=== PATIENT | female | born 1960 | race Two or more races ===

== ENCOUNTER 2020-03-31 14:20 | Inpatient (IN) | payer OTHER, MEDICAID ==
[~2020-03-31] VITALS: Ht 149.9 cm; Wt 82.7 kg
[2020-03-31 16:11] LABS: Albumin 3.6 g/dL (3.4-5.0); Calcium 9.9 mg/dL (8.5-10.1); Potassium 3.4 mmol/L (3.5-5.1)
[2020-03-31 16:14] LABS: BUN/Creatinine Ratio 38.8; Bilirubin, Total 0.7 mg/dL (0.2-1.0)
[2020-03-31 16:15] LABS: Basophils # (auto) 0 10 ^3/uL (0-0.2); Basophils % (auto) 0.3 % (0.0-2.0); Eosinophils # (auto) 0 10 ^3/uL (0-0.8); Eosinophils % (auto) 0.1 % (0.0-7.0); Hemoglobin 16.2 g/dL (12.2-16.2); Lymphocytes # (auto) 1.5 10 ^3/uL (0.4-5.4); Lymphocytes % (auto) 12.5 % (10.0-50.0); Mean Corpuscular Hemoglobin 30.2 pg (28.0-32.0); Mean Corpuscular Hgb Conc. 32.5 g/dL (32.0-36.0); Mean Corpuscular Volume 92.9 fL (80.0-100.0); Monocytes # (auto) 1.1 10 ^3/uL (0-1.3); Monocytes % (auto) 8.9 % (0.0-12.0); Neutrophils # (auto) 9.3 10 ^3/uL (1.6-8.6); Neutrophils % (auto) 78.2 % (37.0-80.0); Platelet Count (auto) 271 10^3/uL (140-450); Red Blood Cells 5.38 10^6/uL (4.0-5.20); Red Cell Distribution Width 13.6 % (11.8-14.3); White Blood Cell 11.9 10^3/uL (4.4-10.8)
[2020-03-31] MEDS ORDERED: NITROGLYCERIN 0.4 MG SL TAB SL PRN ×2 (18:15→19:45)
[2020-03-31] MEDS ORDERED: LACTATED RINGER'S 1,000 ML IV ONE (19:30)
[2020-03-31] MEDS ORDERED: POTASSIUM CHL 20MEQ/100ML 100 ML IV ONE (19:30)
[2020-03-31] MEDS ORDERED: guaiFENesin 200 MG/10 ML UD PO ONE (19:45)
[2020-03-31] MEDS ORDERED: ONDANSETRON HCL 4 MG/2 ML VIAL IV PRN (19:45)
[2020-03-31] MEDS ORDERED: MORPHINE SULF INJ 2 MG/ML SYRINGE 1ML IV PRN ×2 (19:45)
[2020-03-31] MEDS ORDERED: BACLOFEN 10 MG TAB PO ONE (19:45)
[2020-03-31] MEDS ORDERED: cefTRIAXone 1GM/50ML D5W 50 ML IV ONE (19:45)
[2020-03-31] MEDS ORDERED: PANTOPRAZOLE 40 MG/10 ML VIAL INJ IV ONE (19:45)
[2020-03-31] MEDS ORDERED: CLINDAMYCIN 300MG IV 50 ML IV ONE (19:45)
[2020-03-31] MEDS ORDERED: guaiFENesin 200 MG/10 ML UD PO PRN (20:00)
[2020-03-31] MEDS: SODIUM CHLORIDE 0.9% 1,000 ML IV SCH (21:31)
[2020-03-31] MEDS: MEMANTINE HCL 5 MG TAB PO SCH (22:00)
[2020-03-31 22:09] VITALS: BP 117/75
--- NOTE | 2020-03-31 22:09 | NUR ---
TELE ADMIT Patient arrived to unit via wheelchair and was transferred safely into bed. Patient is A&O X's 4 with no s/s of distress and reports no pain. Patient is receiving 3L O2 via N.C. Elevated patient's HOB and have aspiration precautions in place. Patient was oriented to unit (call light/tv/lights/ policies and procedures.) Educated patient on POC and to use call light when in need of any assistance. Patient verbalized understanding. Bed is in lowest/locked position with side rails up X's 2 and call light is within reach of patient. Will continue care.
[2020-03-31 22:20] VITALS: BP 117/75
[2020-03-31] MEDS: CLINDAMYCIN 300MG IV 50 ML IV SCH (22:41)
[2020-04-01] MEDS ORDERED: guaiFENesin 200 MG/10 ML UD PO PRN
[2020-04-01] MEDS ORDERED: BACL10TA PO (02:14)
[2020-04-01 05:00] VITALS: BP 122/74
[2020-04-01] MEDS: SODIUM CHLORIDE 0.9% 1,000 ML IV SCH (05:30)
[2020-04-01] MEDS: BACLOFEN 10 MG TAB PO SCH ×3 (05:34→21:51)
[2020-04-01] MEDS: CLINDAMYCIN 300MG IV 50 ML IV SCH (05:34)
[2020-04-01 07:08] LABS: Cholesterol 190 mg/dL (< 200); HDL Cholesterol 47 mg/dL (40-59); LDL Cholesterol 125 mg/dL (< 100); Triglycerides 124 mg/dL (< 150)
[2020-04-01] MEDS: Ensure Enlive Strawberry 8oz Bottle PO SCH ×3 (08:00→19:01)
--- NOTE | 2020-04-01 08:30 | NUR ---
Opening Shift Note Assumed care of patient, awake and alert. No S/S of distress/SOB or pain. Instructed on POC and to call for assist PRN, will continue to monitor for changes Q1hr and PRN. Patient for Q2H turning.
[2020-04-01 08:41] VITALS: BP 124/71
[2020-04-01] MEDS: PANTOPRAZOLE 40 MG/10 ML VIAL INJ IV SCH (09:28)
[2020-04-01] MEDS: MEMANTINE HCL 5 MG TAB PO SCH ×2 (10:00→21:51)
[2020-04-01] MEDS ORDERED: POTASSIUM CHL 20 Meq TABLET PO SCH (10:00)
[2020-04-01] MEDS ORDERED: POTASSIUM EFFERVESENT TAB 25 MEQ PO SCH (10:00)
--- NOTE | 2020-04-01 11:00 | NUR ---
WOUND CARE NOTE: PATIENT NOTED TO HAVE LOW TRISH 11, ADDED PATIENT TO SKIN INTEGRITY MONITORING. PATIENT ADMITTED TO [facility] WITH DIAGNOSIS OF ACUTE ASPIRATION PNA. PATIENT IS THIN, WEIGHING ONLY 49.1 KG. SHE HAS HISTORY WITH ALS. PATIENT IS MAX ASSIST FOR ALL OF HER ADL'S, INCLUDING REPOSITIONING. PATIENT IS WOUND FREE AT THIS TIME. ORDERED SPECIALTY AIR MATTRESS. PATIENT TO BE PLACED, PENDING DELIVERY BY [facility]. PATIENT WOULD BENEFIT FROM: FREQUENT TURN SCHEDULE, Q 2 HOURS, PRN CONDITION PERMITS, WITH PRESSURE REDISTRIBUTION USING PILLOWS/WEDGES, BID/PRN APPLICATION WITH MOISTURE BARRIER CREAM, OPTIFOAM GENTLE SACRAL DRESSSING PREVENTATIVE, SPECIALTY AIR MATTRESS, SKIN/WOUND CARE PLAN, DIETARY CONSULT, CONTINUED MONITORING BY WOUND CARE TEAM.
[2020-04-01 13:00] VITALS: BP 102/73
--- NOTE | 2020-04-01 14:28 | NUR ---
Nutrition Assessment/consult Notes please see attached link for complete assessment Est [employer] needs BW 49 [id number] kcals (25-30 kcal/kgBW), Est Protein needs: 49-59 gms/day (1.0-1.2 gm/kgBW). Will continue to monitor and reassess prn. Addendum: 04/01/20 at [address] Amended: Links added.
--- NOTE | 2020-04-01 15:41 | NUR ---
SWALLOW EVALUATED. PATIENT HAS NATURAL TEETH UPPER AND LOWER. PATIENT ACCEPTS THAT SHE HAS DYSPHAGIA DUE TO ALS. ABLE TO TOLERATE PUREE DIET TEXTURE WITH THIN LIQUIDS WITH NO OVERT SIGNS OR SYMPTOMS OF ASPIRATION. EDUCATED PATIENT IN SAFE SWALLOW INCLUDING SMALL BITES AND SIPS, SLOW RATE AND CHIN TUCK. NURSING NOTIFIED.
--- NOTE | 2020-04-01 16:00 | NUR ---
Assessment Patient is a 59-year-old female. Assessment was completed with patient sister Krissy ). Per Krissy prior to admission patient lived with her boyfriend and functioned with assistance. Per Krissy, Rex is to not make any medical decision regarding patient. Per Krissy she would like to be notified for any discharge plan. Per Krissy patient has a walker and wheelchair for home use. Advised Krissy there is a social service consult for SNF Placement. Per Krissy she does not want her sister to be placed at a [facility] nursing facility and would like her to return to her prior living arrangements post discharge and family will transport patient home. Informed Krissy bedside nurse will be informed. Informed Krissy she has the right to participate in all discharge planning. Krissy verbalized understanding and agreed to discharge plan. Informed STAS Gallegos. Addendum: 04/03/20 at 0842 by RUTHIE VIRK Amended: Links added.
[2020-04-01] MEDS: D5W/SOD CHL 0.45%/KCL 20MEQ 1,000 ML IV SCH (16:48)
[2020-04-01 16:54] VITALS: BP 118/59
--- NOTE | 2020-04-01 19:45 | NUR ---
Opening Shift Note Assumed care of patient, awake and alert. No S/S of distress/SOB or pain noted. Instructed on POC and to call for assist PRN. Bed is in lowest locked position with bed rails up x2 and call light is within reach.
--- NOTE | 2020-04-01 19:59 | NUR ---
MD Santos at the bedside.
--- NOTE | 2020-04-01 20:15 | NUR ---
RT NOTE BEDSIDE TONY ATTEMPTED WITH PT PER DR JOHNSON REQUEST/ORDER. PT IS VERY WEAK. PT IS UNABLE TO GET A GOOD SEAL AROUND MOUTH PIECE AND THEREFORE TONY IS UNABLE TO DETECT A BREATH. ABG DRAWN PER DR JOHNSON WELL. PT WAS ON 1L NASAL CANNULA. ABG RESULTS AND TONY RESULTS REPORTED TO DR JOHNSON IN THE ICU WHEN HE WAS DONE WITH PROCEDURE. CONCERN ABOUT PT BEING TOO WEAK TO REMOVE A BIPAP WAS DISCUSSED AND DR JOHNSON STATES THAT PT DOES NEED IT ACCORDING TO ABG RESULTS BUT AGREES WITH CONCERNS, SAID TO SPEAK TO DR MENDOSA ABOUT MAKING THE PT A ONE TO ONE AND CLOSER TO THE NURSING STATION. RT CALLED PBX AND HAS REQUESTED DR MENDOSA BE PAGED
[2020-04-01] MEDS: cefTRIAXone 1GM/50ML D5W 50 ML IV SCH (21:07)
--- NOTE | 2020-04-01 21:14 | NUR ---
RT NOTE SECOND CALL TO PBX TO HAVE DR MENDOSA PAGED FOR ORDER CLARIFICATION
--- NOTE | 2020-04-01 22:32 | NUR ---
MD SANTOS CALLED: MD Santos called and notified that to keep patient NPO after midnight and to place surgical consult with [facility] for Trache and PEG tube placement. To place and carry out orders.
[2020-04-01 22:37] VITALS: BP 109/60
--- NOTE | 2020-04-01 22:50 | NUR ---
RT NOTE PLACED PT ON BIPAP B11 WITH SMALL FACE MASK. BIPAP IS PLUGGED TO RED OUTLET. ALARMS ARE ON AND AUDIBLE TO SITTER AT BEDSIDE. PT PLACED ON BEDSIDE POX PER PROTOCOL. BS ARE CTA. PT APPEARS TO TOLERATE FAIRLY. CONT ORDERED. POX 98% Addendum: 04/01/20 at 2351 by Alka Duarte RT Amended: Links added.
--- NOTE | 2020-04-02 00:30 | NUR ---
RT NOTE ROUTINE BIPAP CHECK DONE. PT ON BIPAP B11 WITH SMALL FACE MASK. BIPAP IS PLUGGED TO RED OUTLET. ALARMS ARE ON AND AUDIBLE TO SITTER AT BEDSIDE. PT PLACED ON BEDSIDE POX PER PROTOCOL. BS ARE CTA. PT APPEARS TO BE SLEEPING AND TOLERATES FAIRLY WELL. CONT ORDERED. POX 98% Addendum: 04/02/20 at 0039 by Alka Duarte RT Amended: Links added.
[2020-04-02 00:54] VITALS: BP 109/60
--- NOTE | 2020-04-02 01:25 | NUR ---
Patient refusing Bipap: Patient wishes to take Bipap off stating "I cant take this anymore. I need it off." Educated patient about the benefits of keeping Bipap on but patient wishes to have it off. Paged respiratory at this time to remove Bipap.
--- NOTE | 2020-04-02 01:35 | NUR ---
Bipap: RT at the bedside. Attempted to remove Bipap per patients request but patient stated she couldn't breath after its removal. Patient placed back on the Bipap to assist with breathing. Instructed that she must keep Bipap on.
--- NOTE | 2020-04-02 01:38 | NUR ---
RT NOTE PT WAS SEEN BY RT FOR REMOVAL OF BIPAP PER PT REQUEST. PT DOES NOT TOLERATE BEING OFF BIPAP FOR MORE THAN 2 MINUTES. PT STARTED GASPING AND SAYING SHE CAN'T BREATHE SO BIPAP WAS PLACED BACK ON PT. PT REQUESTING NASAL CANNULA BUT CANNOT CATCH HER BREATH WITHOUT BIPAP. STAS CHIU NOTIFIED AND AWARE. RT DEBI HELPED SITTER ANNA REPOSITION PATIENT SEVERAL TIMES. CONT ORDERED
[2020-04-02] MEDS: LORazepam 2MG/ML-1ML VIAL IV PRN ×2 (01:53→23:47)
[2020-04-02] MEDS: D5W/SOD CHL 0.45%/KCL 20MEQ 1,000 ML IV SCH ×2 (01:58→16:55)
--- NOTE | 2020-04-02 02:20 | NUR ---
RT NOTE ROUTINE BIPAP CHECK DONE. PT ON BIPAP B11 WITH SMALL FACE MASK. BIPAP IS PLUGGED TO RED OUTLET. ALARMS ARE ON AND AUDIBLE TO SITTER AT BEDSIDE. PT PLACED ON BEDSIDE POX PER PROTOCOL. BS ARE CTA. PT IS SLEEPING AFTER GETTING ATIVAN AND APPEARS MORE COMFORTABLE. CONT ORDERED. POX 99% Addendum: 04/02/20 at 0236 by Alka Duarte RT Amended: Links added.
--- NOTE | 2020-04-02 04:06 | NUR ---
RT NOTE ROUTINE BIPAP CHECK DONE. PT ON BIPAP B11 WITH SMALL FACE MASK. BIPAP IS PLUGGED TO RED OUTLET. ALARMS ARE ON AND AUDIBLE TO SITTER AT BEDSIDE. PT PLACED ON BEDSIDE POX PER PROTOCOL. BS ARE CTA. PT IS SLEEPING AND APPEARS MORE COMFORTABLE. CONT ORDERED. POX 100% Addendum: 04/02/20 at 0412 by Alka Duarte RT Amended: Links added.
[2020-04-02 05:11] VITALS: BP 100/59
[2020-04-02] MEDS: BACLOFEN 10 MG TAB PO SCH ×3 (05:56→22:00)
[2020-04-02 07:18] LABS: INR 0.97 (0.9-1.15); Partial Thromboplastin Time 22.2 sec (23.0-31.2)
[2020-04-02] MEDS: Ensure Enlive Strawberry 8oz Bottle PO SCH ×3 (08:00→17:47)
--- NOTE | 2020-04-02 08:32 | NUR ---
paged sean funes to clarify about procedure.
--- NOTE | 2020-04-02 08:33 | NUR ---
SPOKE TO RN IN PREOP PATIENT IS NOT ON SCHEDULE FOR PROCEDURE TODAY.
--- NOTE | 2020-04-02 08:35 | NUR ---
MATHEUS SANTOS REGARDING PLAN OF CARE. INFORMED OF Franca MARION BEING OUT AND PATIENTS REFUSAL OF TRACH INSERTION. AWAITING CALL BACK.
[2020-04-02 08:50] LABS: Basophils # (auto) 0 10 ^3/uL (0-0.2); Basophils % (auto) 0.3 % (0.0-2.0); Eosinophils # (auto) 0.1 10 ^3/uL (0-0.8); Eosinophils % (auto) 0.7 % (0.0-7.0); Hematocrit 40.5 % (36.0-46.0); Hemoglobin 13.1 g/dL (12.2-16.2); Lymphocytes # (auto) 1.9 10 ^3/uL (0.4-5.4); Mean Corpuscular Hemoglobin 30.3 pg (28.0-32.0); Mean Corpuscular Hgb Conc. 32.5 g/dL (32.0-36.0); Mean Corpuscular Volume 93.3 fL (80.0-100.0); Monocytes # (auto) 1.1 10 ^3/uL (0-1.3); Neutrophils # (auto) 5.9 10 ^3/uL (1.6-8.6); Platelet Count (auto) 189 10^3/uL (140-450); Red Blood Cells 4.34 10^6/uL (4.0-5.20); Red Cell Distribution Width 13.6 % (11.8-14.3)
--- NOTE | 2020-04-02 08:50 | NUR ---
SPOKE TO Franca SANTOS INSTRUCTED TO CHANGE SURGICAL CONSULT TO Luli OLIVER, WILL FOLLOW THROUGH.
--- NOTE | 2020-04-02 09:06 | NUR ---
SPOKE TO Franca OLIVER. PER Phylicia OLIVER THIS IS A COMPLICATED CASE AND NOTHING WILL BE DONE TODAY AND TO FEED PATIENT PUREED DIET.
[2020-04-02 09:11] LABS: Albumin 2.7 g/dL (3.4-5.0); Calcium 8.6 mg/dL (8.5-10.1); Potassium 3.9 mmol/L (3.5-5.1)
[2020-04-02 09:14] LABS: BUN/Creatinine Ratio 33.3; Bilirubin, Total 0.6 mg/dL (0.2-1.0)
[2020-04-02] MEDS: MEMANTINE HCL 5 MG TAB PO SCH ×2 (10:00→22:00)
--- NOTE | 2020-04-02 10:00 | NUR ---
Franca SANTOS AT BEDSIDE WITH Franca JOHNSON INFORMED PATIENT OF PROCEDURE OF TRACHEOSTOMY. INSTRUCTED THIS RN TO HAVE RT ATTEMPT TO TAKE PATIENT OFF BIPAP. PAGED RT.
[2020-04-02] MEDS ORDERED: ENOXAPARIN SOD 40 MG/0.4 ML SYRINGE SC ONE (11:15)
[2020-04-02] MEDS: POTASSIUM EFFERVESENT TAB 25 MEQ GT SCH (11:47)
[2020-04-02] MEDS: PANTOPRAZOLE 40 MG/10 ML VIAL INJ IV SCH (11:47)
[2020-04-02 13:00] VITALS: BP 113/55
--- NOTE | 2020-04-02 14:16 | NUR ---
PATIENT COMPLAINING OF SOB. PATIENTS OXYGEN SATURATIONS AT 100% WITH 4L NC. SPOKE TO RT HARDEEP.
--- NOTE | 2020-04-02 15:47 | NUR ---
MATHEUS SANTOS REGARDING POSITIVE BLOOD CULTURES. GROWING GRAM POSITIVE COCCI IN CLUSTER. AWAITING CALL BACK.
--- NOTE | 2020-04-02 16:47 | NUR ---
CALLED DOWNSTAIRS TO OR. SPOKE TO STAS CALDERA AND INFORMED OF PENDING ANESTHESIOLOGY CONSULT. INFORMED OF REASON AND PER STAS CALDERA SHE WILL SPEAK TO ANESTHESIOLOGY TO GIVE THIS RN A CALL BACK.
[2020-04-02 16:51] VITALS: BP 123/66
--- NOTE | 2020-04-02 19:55 | NUR ---
Opening Shift Note Assumed care of patient, awake and alert. No S/S of distress/SOB or pain noted. Instructed on POC and to call for assist PRN. Bed is in lowest locked position with bed rails up x2. Sitter is at the bedside.
[2020-04-02] MEDS: cefTRIAXone 1GM/50ML D5W 50 ML IV SCH (21:08)
--- NOTE | 2020-04-02 21:15 | NUR ---
Krissy (Sister) Called regarding procedure: Family member Krissy (Sister) called regarding patient. Password verified. Patients Sister insisting patient not get the procedure and is insisting to have patient transferred [place] [facility] Patients sister Krissy stated "Im just looking out for whats best for my sister and I dont want her having the procedure tomorrow. I called [facility] and they said they would do the procedure there. Otherwise I am calling my Ultrasonic Welding Machine Operator." Told Krissy that I would make the Day shift RN aware and make a note for the Doctors to call her in the AM. Transferred call after all questions answered to phone in patients room so sister could speak with the patient.
[2020-04-02 22:00] VITALS: BP 107/66
[2020-04-03 04:46] VITALS: BP 114/63
[2020-04-03] MEDS: BACLOFEN 10 MG TAB PO SCH ×3 (06:00→21:14)
[2020-04-03] MEDS: D5W/SOD CHL 0.45%/KCL 20MEQ 1,000 ML IV SCH ×2 (06:46→19:44)
[2020-04-03] MEDS: ALBUTEROL SULF 2.5 MG/0.5ML(0.5%) NEB SOLN NEB PRN (06:55)
[2020-04-03] MEDS: IPRATROPIUM BROM 0.5 MG/2.5ML INH SOL NEB PRN (06:55)
--- NOTE | 2020-04-03 07:30 | NUR ---
CLOSING NOTE: Patient resting in bed with breaths even and unlabored. Sitter at the bedside. Report given to STAS Nguyen. Updated about POC and notified to have MD contact Krissy (Sister) regarding procedure.
--- NOTE | 2020-04-03 07:35 | NUR ---
Opening Shift Note Received report from noc shift rnGarima. Patient, awake and alert, very soft spoken. No S/S of distress/SOB, denies pain at this time. Plan of care discussed, patient encouraged to call for assist PRN, will continue to monitor for changes Q1hr and PRN. Sitter at bedside for safety.
[2020-04-03 08:00] VITALS: BP 119/66
[2020-04-03] MEDS: Ensure Enlive Strawberry 8oz Bottle PO SCH ×3 (08:00→18:00)
[2020-04-03 09:00] VITALS: BP 119/66
[2020-04-03] MEDS: PANTOPRAZOLE 40 MG/10 ML VIAL INJ IV SCH (09:31)
[2020-04-03] MEDS: MEMANTINE HCL 5 MG TAB PO SCH ×2 (09:32→21:15)
[2020-04-03] MEDS: POTASSIUM EFFERVESENT TAB 25 MEQ GT SCH (09:33)
[2020-04-03] MEDS ORDERED: ENOXAPARIN SOD 40 MG/0.4 ML SYRINGE SC SCH (10:00)
--- NOTE | 2020-04-03 11:09 | NUR ---
Called and left message with OR staff regarding Anesthesiology consult. Will await callback.
[2020-04-03 13:00] VITALS: BP 130/70
--- NOTE | 2020-04-03 13:23 | NUR ---
DR. SANTOS AT BEDSIDE, DISCUSSED PLAN OF CARE AND SURGICAL PLANS WITH PATIENT. PATIENT VERBALIZED SHE WANTS PROCEDURE DONE. DR. SANTOS ALSO CALLED AND SPOKE TO SISTER (YI) WHO HE EXPLAINED PROCEDURE TO. WILL FOLLOW UP WITH ANESTHESIOLOGY CONSULT.
--- NOTE | 2020-04-03 15:07 | NUR ---
Nutrition Followup Note Wt: 64.9 kg Pt`s sleeping with no family by bedside. per records pt possibility to get trach and PEG placed as pt needs it due to her ALS. pt is currently NPO per RN Est Energy needs BW 49 [id number] kcals (25-30 kcal/kgBW), Est Protein needs: 49-59 gms/day (1.0-1.2 gm/kgBW). Will continue to monitor and reassess prn Labs: CO2 38 H, ALB 2.7 L, GLU 125 H BM: pt with no BM recorded per RN note Skin: Bs 15 mod risk, full details in animal care provider note PES: Altered nutrition related lab values r.t current chronic medical condition aeb elev BUN Inadequate PO intake r.t current chronic medical condition aeb pt`s with dysphagia Comments: Will continue to monitor NPO status, skin status, pertinent labs and weight trends. Will f/u in 2-3 days. 1) advance diet per ST eval. 2) consider alternate nutrition support if pt unable to swallow. If EN is choice of route consider Osmolite @ 50 ml/hr per MD approval. 3) continue current plan of care
--- NOTE | 2020-04-03 15:18 | NUR ---
Spoke to Dr. Phylicia Becerra regarding plans for procedure. Per MD, she will coordinate with Dr. Luli Becerra and will call Brionna for procedure time.
[2020-04-03] MEDS: LORazepam 2MG/ML-1ML VIAL IV PRN ×2 (16:49→23:52)
[2020-04-03 17:12] VITALS: BP 127/71
--- NOTE | 2020-04-03 18:18 | NUR ---
Spoke to Phylicia Becerra regarding procedure. Per MD, procedure will be done tomorrow 04/04/20 at 1300. Brionna made aware.
--- NOTE | 2020-04-03 18:25 | NUR ---
attempted to sign consent with another RN at bedside to witness consent, since patient is unable to sign. However, patient appears sleepy and unable to verbally consent at this time. Will endorse consent to noc shift rn.
--- NOTE | 2020-04-03 19:30 | NUR ---
Opening Shift Note Assumed care of patient. No S/S of distress/SOB or pain. Instructed on POC and to call for assist PRN. Bed in lowest locked position, call light within reach, side rails up x2, fall precautions in place, sitter at bedside for patient safety. Will continue to monitor for changes Q1hr and PRN.
[2020-04-03] MEDS: cefTRIAXone 1GM/50ML D5W 50 ML IV SCH (21:09)
[2020-04-03 21:39] VITALS: BP 125/65
--- NOTE | 2020-04-03 22:47 | NUR ---
PLACED PT ON BIPAP B11, BIPAP CONNECTED TO RED OUTLET AND O2 SOURCE ALARMS ARE SET AND AUDIBLE. MASK FIT AND LEAK APPROPRIATE. NO BREAKDOWN NOTED PRIOR TO PLACEMENT. CONT POX AT BEDSIDE PER PROTOCOL. POX PROBE ON LEFT INDEX FINGER. SITTER AT BEDSIDE. RT NAME AND PAGER ASSIGNMENT WRITTEN ON PTS ROOM BOARD. WILL CONTINUE TO MONITOR Q2H AND NEEDED. STAS NOLASCO COMMUNICATED ON BIPAP PLACEMENT. SPOKE TO SAME RN ABOUT ATIVAN GIVEN PRIOR NIGHTS FOR PT TO TOLERATE BIPAP. RN COMMUNICATED TO ME A DOSE WONT BE ABLE TO BE GIVEN UNTIL AN HOUR FROM NOW. WILL CONTINUE TO MONITOR PT.
[2020-04-04] VITALS (32 sets, daily range): BP systolic 84–139; BP diastolic 45–88
--- NOTE | 2020-04-04 00:49 | NUR ---
AT BEDSIDE FOR ROUTINE BIPAP CHECK. PT THIS CHECK NOTED TO BE ON BILATERAL MITTENS, PT SEEMS RESTLESS AND ATTEMPTING TO TAKE MITTENS OFF. SITTER AT BEDSIDE COMMUNICATED PT REPEATEDLY WAS TAKING OFF POX PROBE AND STARTED PULLING ON IVS. WILL CONTINUE TO MONITOR. SITTER AT BEDSIDE AWARE I CAN BE PAGED IF THERE IS ANY CONCERN.
--- NOTE | 2020-04-04 02:36 | NUR ---
Respiratory note: AT BEDSIDE FOR ROUTINE BIPAP CHECK. NO CHANGES DONE, PT APPEARS TO BE COMFORTABLY SLEEPING. SITTER AT BEDSIDE AWARE I CAN BE PAGED IF THERE IS ANY CONCERN.
--- NOTE | 2020-04-04 04:30 | NUR ---
Respiratory note: AT BEDSIDE END OF SHIFT BIPAP CHECK.NO CHANGE MADE. PT AWAKE AND ATTEMPTING TO TAKE MITTENS OFF. SITTER AT BEDSIDE AWARE I CAN BE PAGED IF THERE IS ANY CONCERN. WILL HAVE DAY SHIFT CONTINUE POC.
[2020-04-04] MEDS: BACLOFEN 10 MG TAB PO SCH ×3 (05:55→22:00)
[2020-04-04] MEDS: ALBUTEROL SULF 2.5 MG/0.5ML(0.5%) NEB SOLN NEB PRN (06:53)
[2020-04-04] MEDS: IPRATROPIUM BROM 0.5 MG/2.5ML INH SOL NEB PRN (06:53)
--- NOTE | 2020-04-04 07:15 | NUR ---
Opening Shift Note: Assumed care of patient. Patient asleep at this time. No S/S of distress/SOB or pain. Patient currently on bi-pap. Bed in lowest locked position, side rails up x 2, call light within reach. Sitter at bedside for patient safety. Patient will be instructed on POC and to call for assist PRN, will continue to monitor for changes Q1hr and PRN.
--- NOTE | 2020-04-04 07:50 | NUR ---
PT TAKEN OF BIPAP. PT ON 3L/MIN VIA NC. PT TOLERATING WELL. 94% O2 SATS, HR 95 BPM, RR20 BPM, NO ACUTE RESPIRATORY DISTRESS NOTED. SITTER AT BEDSIDE. WILL CONTINUE TO MONITOR PT.
[2020-04-04] MEDS: Ensure Enlive Strawberry 8oz Bottle PO SCH ×2 (08:00→12:00)
[2020-04-04 08:16] LABS: Basophils # (auto) 0 10 ^3/uL (0-0.2); Basophils % (auto) 0.4 % (0.0-2.0); Eosinophils # (auto) 0.1 10 ^3/uL (0-0.8); Eosinophils % (auto) 0.9 % (0.0-7.0); Hematocrit 42.7 % (36.0-46.0); Hemoglobin 13.8 g/dL (12.2-16.2); Lymphocytes # (auto) 0.8 10 ^3/uL (0.4-5.4); Lymphocytes % (auto) 8.4 % (10.0-50.0); Mean Corpuscular Hemoglobin 30.3 pg (28.0-32.0); Mean Corpuscular Hgb Conc. 32.2 g/dL (32.0-36.0); Mean Corpuscular Volume 94.1 fL (80.0-100.0); Monocytes # (auto) 0.9 10 ^3/uL (0-1.3); Monocytes % (auto) 9.2 % (0.0-12.0); Neutrophils % (auto) 81.1 % (37.0-80.0); Nucleated Red Blood Cells % 0.1 %; Platelet Count (auto) 182 10^3/uL (140-450); Red Blood Cells 4.54 10^6/uL (4.0-5.20); Red Cell Distribution Width 13.6 % (11.8-14.3); White Blood Cell 9.9 10^3/uL (4.4-10.8)
[2020-04-04 08:43] LABS: BUN/Creatinine Ratio 11.1; Calcium 8.5 mg/dL (8.5-10.1); Potassium 3.9 mmol/L (3.5-5.1)
[2020-04-04] MEDS: D5W/SOD CHL 0.45%/KCL 20MEQ 1,000 ML IV SCH ×2 (08:55→22:15)
--- NOTE | 2020-04-04 09:05 | NUR ---
RECEIVED CALL FROM LAB. CRITICAL C02 OF 41. PAG[address] SANOTS AT THIS TIME. AWAITING CALL BACK.
[2020-04-04] MEDS: POTASSIUM EFFERVESENT TAB 25 MEQ GT SCH (09:37)
[2020-04-04] MEDS: MEMANTINE HCL 5 MG TAB PO SCH ×2 (09:37→22:00)
[2020-04-04] MEDS: PANTOPRAZOLE 40 MG/10 ML VIAL INJ IV SCH (10:18)
[2020-04-04 11:08] LABS: INR 0.95 (0.9-1.15); Partial Thromboplastin Time 25.3 sec (23.0-31.2)
--- NOTE | 2020-04-04 12:07 | NUR ---
FULL BEDDING CHANGE AT THIS TIME.
[2020-04-04] MEDS ORDERED: fentaNYL CITRATE 100 MCG/2 ML VL ONE ×3 (14:11→17:11)
[2020-04-04] MEDS ORDERED: MIDAZOLAM HCL 1MG/1ML-2 ML VIAL ONE ×2 (14:11→16:25)
[2020-04-04] MEDS ORDERED: SUCCINYLCHOLINE CHLORIDE 20 MG/ML 10ML VIAL IV ONE (14:16)
[2020-04-04] MEDS ORDERED: ceFAZolin 1GM/50ML 50 ML IV ONE (14:18)
[2020-04-04] MEDS ORDERED: ROCURONIUM 10MG/ML 10ML VIAL IV ONE ×2 (14:52→16:28)
[2020-04-04] MEDS ORDERED: PHENYLEPHRINE HCL 10 MG/ML VL ONE (15:00)
[2020-04-04] MEDS ORDERED: PROPOFOL 10 MG/ML 20 ML IV ONE ×2 (15:00→16:30)
[2020-04-04] MEDS ORDERED: ONDANSETRON HCL 4 MG/2 ML VIAL ONE (15:45)
[2020-04-04] MEDS ORDERED: MIDAZOLAM HCL 1MG/1ML-2 ML VIAL IV PRN (16:15)
[2020-04-04] MEDS ORDERED: HYDROmorphone HCL 2 MG/ML VL IV PRN (16:15)
[2020-04-04] MEDS ORDERED: MIDAZOLAM DRIP 50 mg/50mL 50 ML IV ONE (16:23)
[2020-04-04] MEDS: LACTATED RINGER'S 1,000 ML IV SCH (16:40)
--- NOTE | 2020-04-04 17:50 | NUR ---
RECEIVED FROM PACU S/P TRACH AND PEG INSERTION PT CURRENTLY ON VENT VIA A PORTEX 7.5 TRACH , PT LIGHTLY SEDATED ON VERSED AT 3 MG/HR AND FENTANYL AT 25 MCG/HR. AND RECEIVING VERSED AT 100 ML/HR. LS CTA IN ALL PÉREZ AND DIMINISHED ON THE BASIS . ST IN THE LOW 100'S NO ECTOPY, AFEBRILE PULSES PALPABLE IN ALL 4 EXTREMITIES NO EDEMA. BOTH SURGICAL SITES BENIGN NO BLEEDING OR SWELLING NOR BRUISING. DRESSING CDI. EDUCATED PT ON POC. PT UNABLE TO FOLLOW OR VERBALIZE UNDERSTANDING AT THIS TIME.
[2020-04-04] MEDS: MIDAZOLAM DRIP 50 mg/50mL 50 ML IV SCH (19:00)
[2020-04-04] MEDS: fentaNYL Drip 2500mCg/250mlNS 250 ML IV SCH (19:00)
[2020-04-04] MEDS: NOREPINEPHRINE 8 MG/250ML KIT 250 ML IV SCH (19:00)
--- NOTE | 2020-04-04 19:00 | NUR ---
Opening shift note: Patient with Trach in place. VENT settings: AC 14, TV 450, FIO2 50, PEEP 5, O2 SAT 97%, bilateral lung sounds diminished. PEG tube in place and clamped. Taylor catheter draining via gravity with yellow urine. Safety precautions in place, will continue to monitor.
[2020-04-04] MEDS ORDERED: DEXTROSE (50%) 50ML SYRG IV PRN (19:45)
--- NOTE | 2020-04-04 20:01 | NUR ---
SPOKE TO MD JOHNSON, READ BACK ABG RESULTS. NEW VERBAL ORDERS RECEIVED WILL FOLLOW THROUGH.VENT CHANGES ARE FOLLOWS. PEEP INCREASE FROM 5CMH2O TO 7CMH2O AND DECREASE VT FROM 450mls TO 400mls. ABG IN AM. WILL COMMUNICATED VENT CHANGES TO STAS KUMAR.
--- NOTE | 2020-04-04 20:07 | NUR ---
AT BEDSIDE VENT CHANGES MADE. COMMUNICATED STAS Espinoza ON VENT CHANGES.
--- NOTE | 2020-04-04 20:10 | NUR ---
Respiratory note: RECEIVED PT ON VENT V13, VENT TO TRACH. VENT CONNECTED TO RED OUTLET AND O2 WALL SOURCE. ALARMS ARE SET AND AUDIBLE. AMBU BAG AND MASK AT BEDSIDE. BS ARE DIMINISHED CLEAR T/O. TRACH IS NOTED TO BE CLEAN. VENT CHANGES PER MD JOHNSON. RT NAME AND PAGER ASSIGNMENT WRITTEN ON PTS ROOM BOARD. WILL CONTINUE TO MONITOR Q2H.
--- NOTE | 2020-04-04 20:26 | NUR ---
Family: Patient's family called, password was verified. Family updated on patient condition and situation.
--- NOTE | 2020-04-04 21:45 | NUR ---
IV attempt: Multiple RN's attempted to place a secondary IV with no success. Patient is a very hard stick and veins continued to blow after multiple RN's attempted.
[2020-04-04] MEDS: ceFAZolin 1GM/50ML 50 ML IV SCH (22:00)
--- NOTE | 2020-04-04 22:15 | NUR ---
2215 IV fluid (D5W/SodChl 0.45%/KCL 20meq held d/t patient only has one IV access and that IV is already running sedation medications and LR.
[2020-04-05] VITALS (103 sets, daily range): BP systolic 87–163; BP diastolic 64–103
--- NOTE | 2020-04-05 00:15 | NUR ---
Respiratory note: AT BEDSIDE FOR ROUTINE VENT CHECK. 3CC OF AIR PLACED IN CUFF DUE TO AUDIBLE LEAK HEARD FROM PTS MOUTH.STAS PHILLIPS AT BEDSIDE AND AWARE. WILL CONTINUE TO MONITOR.
[2020-04-05] MEDS: LACTATED RINGER'S 1,000 ML IV SCH (02:40)
[2020-04-05 04:10] LABS: Basophils # (auto) 0 10 ^3/uL (0-0.2); Basophils % (auto) 0.3 % (0.0-2.0); Eosinophils # (auto) 0 10 ^3/uL (0-0.8); Eosinophils % (auto) 0.2 % (0.0-7.0); Hematocrit 44.6 % (36.0-46.0); Hemoglobin 14.5 g/dL (12.2-16.2); Lymphocytes # (auto) 1.4 10 ^3/uL (0.4-5.4); Lymphocytes % (auto) 10.4 % (10.0-50.0); Mean Corpuscular Hemoglobin 30.1 pg (28.0-32.0); Mean Corpuscular Hgb Conc. 32.5 g/dL (32.0-36.0); Mean Corpuscular Volume 92.5 fL (80.0-100.0); Monocytes # (auto) 1.5 10 ^3/uL (0-1.3); Monocytes % (auto) 11.6 % (0.0-12.0); Neutrophils # (auto) 10.1 10 ^3/uL (1.6-8.6); Neutrophils % (auto) 77.5 % (37.0-80.0); Nucleated Red Blood Cells % 0.4 %; Platelet Count (auto) 141 10^3/uL (140-450); Red Blood Cells 4.82 10^6/uL (4.0-5.20); Red Cell Distribution Width 13.2 % (11.8-14.3)
[2020-04-05 04:29] LABS: Anion Gap 8 (5-15); BUN/Creatinine Ratio 12.5; Blood Urea Nitrogen 4 mg/dL (7-18); Calcium 9.1 mg/dL (8.5-10.1); Carbon Dioxide 37 mmol/L (21-32); Chloride 97 mmol/L (98-107); GFR African American 271 mL/min; GFR Non-African American 224 mL/min; Glucose 59 mg/dL (74-106); Potassium 3.5 mmol/L (3.5-5.1); Sodium 142 mmol/L (136-145)
[2020-04-05] MEDS: Ensure Enlive Vanilla 8oz Bottle PO SCH ×3 (05:17→08:00)
[2020-04-05] MEDS: BACLOFEN 10 MG TAB PO SCH ×3 (05:19→21:12)
[2020-04-05] MEDS: ceFAZolin 1GM/50ML 50 ML IV SCH (05:22)
[2020-04-05] MEDS: InsuLIN REG 1unit/0.01ml Soln (100units/ml) SC SCH ×4 (05:30→17:27)
[2020-04-05] MEDS: ACCU-CHEK COMFORT CURVE STRIP VI SCH ×4 (05:30→17:29)
--- NOTE | 2020-04-05 08:00 | NUR ---
AM ASSESSMENT COMPLETED PT REMAINS ON VENTILATOR VIA TRACH PT HAS AN AIR LEAK, AUDIBLE SNORING MOUTH SOUNDS. NO NOTICEABLE VISUAL OR PALPABLE CREPITUS AT TRACHEA INSERTION SITE , NECK , CHEST OR FACE AT THIS TIME. WILL CONTINUE MONITORING. LS CTA BUT DIMINISH . MINIMAL CLEAR SECRETIONS BEEN SUCTIONED BOTH ORALLY AND THROUGH ETT. ORAL CARE RENDERED AT THIS TIME. PT BREATHING OVER THE VENT. SEDATION IS BEEN INCREASED FOR PT'S COMFORT. PT ONLY HAS ONE IV ON LF FA 2ND IV WILL BE ATTEMPTED. REPOSITIONED FOR COMFORT. PT'S UPPER HANDS CONTRACTED INWARD PT'S FOOT WITH FOOT DROP. MONITOR ALARMS VERIFIED.
[2020-04-05] MEDS: D5W/SOD CHL 0.45%/KCL 20MEQ 1,000 ML IV SCH ×3 (10:19→18:50)
[2020-04-05] MEDS: POTASSIUM EFFERVESENT TAB 25 MEQ GT SCH (10:20)
[2020-04-05] MEDS: MEMANTINE HCL 5 MG TAB PO SCH ×2 (10:20→21:13)
[2020-04-05] MEDS: PANTOPRAZOLE 40 MG/10 ML VIAL INJ IV SCH (10:20)
--- NOTE | 2020-04-05 10:37 | NUR ---
UOP LEFT A MESSAGE ON DR. SANTOS'S VOICE MAIL NOTIFYING HIM THAT PT HAS ONLY HAD 35 ML OF URINE SINCE 0700 THIS AM. BUN 4 CR 0.32 PER AM LABS K 3.5. IVF WERE SWITCHED BACK TO NS AT 75 FROM LR FROM OR IVF. PT'S BG WAS 77. C/B IMMEDIATELY ORDERING TO INCREASE D5 1/2 20 NS WITH 20 K TO `125 ML/HR. IVF INCREASED AT THIS TIME.
[2020-04-05] MEDS ORDERED: Osmolite 1.2 Cal One Liter GT SCH (11:15)
--- NOTE | 2020-04-05 12:10 | NUR ---
Nutrition Followup Note Wt: 69.8 kg Spoke to RN about pt, Pt to be initiated on TF per RN. Spoke with RN regarding TF recommendations, pt to start on Osmolite 1.2 at 10 ml/hr and advance as tolerated per RN. Will monitor TF rate and tolerance Est Energy needs BW 49 [id number] kcals (25-30 kcal/kgBW), Est Protein needs: 49-59 gms/day (1.0-1.2 gm/kgBW). Will continue to monitor and reassess prn Labs: BUN 4L, Creat 0.32L, Alb 2.7L, CO2 37H BM: pt with no BM recorded per RN note Skin: Bs 15 mod risk, full details in pharmacist critical care note PES: Altered nutrition related lab values r.t current chronic medical condition aeb elev BUN Inadequate PO intake r.t current chronic medical condition aeb pt`s with dysphagia Comments: Will continue to monitor NPO status, skin status, pertinent labs and weight trends. Will f/u in 2-3 days. 1) Advance TF of Osmolite 1.2 to reach goal rate of 50ml/hr as tolerated 2) continue current plan of care
--- NOTE | 2020-04-05 12:41 | NUR ---
LEFT A MESSAGE TO DR. Mari OLIVER REGARDING PT'S TRACH AIR LEAK AND NOW DEVELOPING SUBCUTANEOUS EMPHYSEMA ON RT SIDE OF FACE WHICH WAS NOT THERE THIS AM. FACE FEEL SWOLLEN AND FEELS CREPITUS. I LEFT PHON # FOR HIM TO CALL BACK.
--- NOTE | 2020-04-05 12:46 | NUR ---
DR. Eddi OLIVER CALLED TO CHECK IF PT HAD BEEN STARTED ON TF. I INFORMED HER THAT PT . STILL HAS NOT BEEN STARTED ON TF SINCE SHE HAS A SMALL AIR LEAK AROUND TRACH SITE AND STARTED TO HAVE SUBCUTANEOUS EMPHYSEMA AROUND THE RT SIDE OF THE FACE. SHE STATE " THAT' S FINE JUST CONTINUE IVF FOR NOW".
--- NOTE | 2020-04-05 13:32 | NUR ---
DR. Mari OLIVER CALLED BACK HE WAS UPDATED ON PT'S TRACH AIR LEAK WITH SUBCUTANEOUS EMPHYSEMA ON RT SIDE OF FACE . HE SAID THAT HE WILL COME IN TO SEE PT.
--- NOTE | 2020-04-05 13:54 | NUR ---
DR. OLIVER CAME IN TO ASSESS PT. HE WANTS TO WEAN PT OFF VENTILATOR. HE SAYS TO CALL EUCLID OPERATOR TO VERIFY WITH HIM. TO DECREASE PEEP, TO START WEANING OFF SEDATION. HE HAS ANESTHESIOLOGIST DR. GHOSH A BACK UP JUST IN CASE IF PT NEEDS TO BE RE- INTUBATED. ALL SEDATION TURNED OFF AT THIS TIME.
--- NOTE | 2020-04-05 13:57 | NUR ---
LEFT A MESSAGE TO DR. CAMARGO REGARDING PT'S CONDITION TO CALL BACK.
--- NOTE | 2020-04-05 14:40 | NUR ---
PLACED 2ND CALL TO DR. VAZQUEZ AND HE IMMEDIATELY CALLED BACK. I INFORMED HIM THE SITUATION OF WHAT IS HAPPENING WITH THE PT. CURRENTLY ON VENT, TRACH AND HAVING SUBCUTANEOUS EMPHYSEMA AND I ALSO INFORMED HIM OF DR. Mari OLIVER'S RECOMMENDATION OF TAKING PT OF THE VENT DECREASING THE PEEP. STATES DECREASING PEEP IS NOT GOING TO CHANGE MUCH OF THE SUBCUTANEOUS EMPHYSEMA, PT CURRENTLY OF SEDATION BUT IS NOT AWAKE AND FOLLOWING COMMANDS TO DO CPAP TRIAL MD WILL ROUND ON PT AT 5 PM.
--- NOTE | 2020-04-05 14:50 | NUR ---
LEFT A MESSAGE TO DR. SANTOS TO CALL BACK I NOTIFI HIM OF PT'S TRACH AIR LEAK WITH SUBCUTANEOUS EMPHYSEMA AND DR.R. OLIVER + DR. VARGASIAN BEEN NOTIFIED. I ALSO UPDATED HIM ON LOW UOP, FC IS PATENT URINE IS CONCENTRATED ORANGE.
--- NOTE | 2020-04-05 15:00 | NUR ---
RESPIRATORY/ SUBCUTANEOUS EMPHYSEMA ADJUSTMENTS TO TRACH CUFF PRESSURE PRESSURE BY DR. Mari OLIVER ASSISTED BY ANESTHESIOLOGIST ALICJA HERNANDEZ, ONCE PRESSURE IN CUFF WAS APPLIED THE SNORING SOUND FROM PT'S MOUTH SUBSIDED.
--- NOTE | 2020-04-05 15:10 | NUR ---
RT Faustin NOTIFIED OF TRACH CUFF ADJUSTMENT, HE WENT AND CHECK TRACH CUFF AND STATES ITS HYPER INFLATED THAT IT SHOULD BE AT 30 CM OG H2O PRESSURE AND THAT IT IS AT [address]. [address] Mari OLIVER AND HE GIVES ME THE OK TO HAVE THE TRACH WITH THE CURRENT PRESSURE PER HIM AND ANESTHESIOLOGIST ALICJA HERNANDEZ. HE STATES THE ULTIMATE GOAL IS TO "HAVE PT OFF THE VENTILATOR". HE CAME BACK STATING TO BACK OFF THE TRACH CUFF PRESSURE SLOWLY UNTIL THE SNORING SOUND IS NO LONGER HEARD.
--- NOTE | 2020-04-05 15:11 | NUR ---
I SPOKE WITH DR. Elizabeth KEBEDE REGARDING PT'S SUBCUTANEOUS EMPHYSEMA. NO UOP AND PLANNING ON CPAP TO DECREASE SUBCUTANEOUS EMPHYSEMA SOON POSSIBLE. HE'LL COME TO SEE PT REGARDING UOP, NO NEW ORDERS RECEIVED AT THIS TIME. MD AWARE OF AM LABS FOR BUN + CR, AND PT'S CURRENT IVF.
--- NOTE | 2020-04-05 15:20 | NUR ---
RT COURTNEY CAME DOWN ON TRACH PRESSURE TO 120 CM OF H2O . PT REMAINS OFF SEDATION STILL NOT AWAKE ENOUGH TO FOLLOW COMMANDS AND NOT READY FOR CPAP TRIAL.
--- NOTE | 2020-04-05 15:49 | NUR ---
RT NOTE: TRACH CARE PERFORMED AT THIS TIME. TRACH TIES CLEAN AND DRY, TRACH GAUZE REPLACED CLEANED AROUND TRACH FLANGE UNABLE TO CLEAN AROUND STOMA SITE DUE TO SUTURES IN PLACE. PT TOLERATED WELL NO ADVERSE REACTIONS.
[2020-04-05] MEDS: fentaNYL Drip 2500mCg/250mlNS 250 ML IV SCH (16:20)
[2020-04-05] MEDS: MIDAZOLAM DRIP 50 mg/50mL 50 ML IV SCH (16:40)
[2020-04-05] MEDS: NOREPINEPHRINE 8 MG/250ML KIT 250 ML IV SCH (16:50)
--- NOTE | 2020-04-05 18:00 | NUR ---
DR. VAZQUEZ ROUNDING ON PT. UPDATED ON PT'S CONDITION. NEW ORDERERS RECEIVED. HE WAS TRYING TO SEE IF PT WAS AWAKE ENOUGH FOR CPAP TRIAL BUT BUT WAS STILL TOO SEDATED. ALL SEDATION HAS BEEN OFF SINCE 1440. SINCE I HAD SPOKEN TO HIM EARLIER. HE ALSO INSTRUCTED RT TO DECREASE THE PRESSURE ON PT'S TRACH CUFF AND HE ORDERED TO HAVE A CT OF THE CHEST DONE TONIGHT IF SUBCUTANEOUS EMPHYSEMA PROGRESS TO GET WORSEN. RT WAS CALLED TO BED SIDE TO IMPLEMENT THOSE ORDERS,. REFER TO RT DOCUMENTATION. AT THE SAME TIME DR. Elizabeth VICTORIA WAS ROUNDING ON PT. HE IS AWARE OF WHAT IS GOING ON WITH PT. HE IS ALSO AWARE OF PT'S LOW UOP. NEW ORDERS RECEIVED FOR LOW UOP.
--- NOTE | 2020-04-05 18:05 | NUR ---
DEFLATED CUFF TO 35 AND CHANGED PEEP TO [address] CAMARGO ORDER. SEE VENT CHARTING FOR RESP ASSESSMENT.
[2020-04-05] MEDS ORDERED: SODIUM CHLORIDE 0.9% 500 ML IV ONE (18:45)
--- NOTE | 2020-04-05 18:50 | NUR ---
IVF BOLUS 500 ML FOR LOW UOP TOTAL OF 100 UOP IN [address] Elizabeth VICTORIA AWARE. ENDORSE LMSW STAS PHILLIPS TO FOLLOW UP.
--- NOTE | 2020-04-05 19:00 | NUR ---
Opening shift note: Patient with Trach in place. VENT settings: AC 14, TV 400, FIO2 40, PEEP 5, O2 SAT 98%, bilateral lung sounds diminished. PEG tube in place and clamped. Taylor catheter draining via gravity with yellow urine. Safety precautions in place, will continue to monitor.
--- NOTE | 2020-04-05 20:05 | NUR ---
Patient arousing: Patient was noted to open left eye spontaneously and becoming alert to voice and able to open her mouth slightly when asked. Patient has been off all sedation throughout the day for potential CPAP trial tonight and potential trach collar after to assist patient with subcutaneous emphysema on right side of her face d/t air leak on trach and patient being on a VENT.
--- NOTE | 2020-04-05 20:10 | NUR ---
CPAP INITIATED: Dr. Weiss at patient bedside, trach cuff deflated completely. CPAP initiated, CPAP of 5, pressure support of 7. Patient currently breathing at 29, saturating at 99%. RN will continue to monitor patient.
[2020-04-05] MEDS ORDERED: cefTRIAXone 1GM/50ML D5W 50 ML IV SCH (21:00)
--- NOTE | 2020-04-05 21:11 | NUR ---
CPAP: Patient continues to tolerate CPAP well at this time and saturating at 98-100%. Patient currently has a respiratory rate of 20. RN will continue to monitor and assess patient.
--- NOTE | 2020-04-05 21:13 | NUR ---
2200 PO medications held: Patients scheduled 2200 PO medications held at this time d/t patient unable to swallow and RN unable to use PEG tube at this time per MD orders.
--- NOTE | 2020-04-05 21:39 | NUR ---
Dr. Weiss paged: RN paged web content developer regarding patient's current condition and toleration of CPAP. Awaiting call back for possible transition to a trach collar.
[2020-04-06] VITALS (100 sets, daily range): BP systolic 66–176; BP diastolic 50–102
[2020-04-06] MEDS: D5W/SOD CHL 0.45%/KCL 20MEQ 1,000 ML IV SCH ×3 (03:00→19:00)
[2020-04-06 04:56] LABS: Basophils # (auto) 0 10 ^3/uL (0-0.2); Basophils % (auto) 0.1 % (0.0-2.0); Eosinophils # (auto) 0.1 10 ^3/uL (0-0.8); Eosinophils % (auto) 0.6 % (0.0-7.0); Hemoglobin 13.3 g/dL (12.2-16.2); Lymphocytes % (auto) 7.3 % (10.0-50.0); Mean Corpuscular Hemoglobin 30.7 pg (28.0-32.0); Mean Corpuscular Hgb Conc. 32.5 g/dL (32.0-36.0); Mean Corpuscular Volume 94.4 fL (80.0-100.0); Monocytes # (auto) 1.6 10 ^3/uL (0-1.3); Monocytes % (auto) 11.6 % (0.0-12.0); Neutrophils % (auto) 80.4 % (37.0-80.0); Platelet Count (auto) 138 10^3/uL (140-450); Red Blood Cells 4.35 10^6/uL (4.0-5.20); Red Cell Distribution Width 13.8 % (11.8-14.3); White Blood Cell 13.7 10^3/uL (4.4-10.8)
[2020-04-06 05:11] LABS: Calcium 8.6 mg/dL (8.5-10.1); Potassium 4.4 mmol/L (3.5-5.1)
[2020-04-06] MEDS: BACLOFEN 10 MG TAB PO SCH ×3 (05:25→22:00)
[2020-04-06] MEDS: ACCU-CHEK COMFORT CURVE STRIP VI SCH ×5 (05:27→23:12)
[2020-04-06] MEDS: InsuLIN REG 1unit/0.01ml Soln (100units/ml) SC SCH ×5 (05:31→23:11)
--- NOTE | 2020-04-06 05:31 | NUR ---
BS: BS was noted to be 145. Insulin held at this time d/t patient having normal blood sugars on previous checks and patient currently not on any feedings.
--- NOTE | 2020-04-06 07:15 | NUR ---
Assumed care of pt., report received per STAS Goodman. No distress noted, pt. trached and vented, reading sinus tachycardia 120's, appears to be uncomfortable, on trach collar, tachypneic, will cont.to monitor for further progression, assessment ongoing.
[2020-04-06] MEDS: LORazepam 2MG/ML-1ML VIAL IV PRN ×2 (07:42→18:23)
[2020-04-06] MEDS: MORPHINE SULF INJ 2 MG/ML SYRINGE 1ML IV PRN (07:42)
[2020-04-06] MEDS: POTASSIUM EFFERVESENT TAB 25 MEQ GT SCH (10:01)
[2020-04-06] MEDS: PANTOPRAZOLE 40 MG/10 ML VIAL INJ IV SCH (10:01)
[2020-04-06] MEDS: MEMANTINE HCL 5 MG TAB PO SCH ×2 (10:02→22:00)
--- NOTE | 2020-04-06 10:29 | NUR ---
Noted Fentanyl bag hanging on IV pole and not in use, removed, and unable to waste in Pyxis, 60ml of fentanyl removed from bag and wasted in appropriate container witnessed By STAS Cowart.
[2020-04-06] MEDS ORDERED: SODIUM CHLORIDE 0.9% 1,000 ML IV ONE (14:00)
[2020-04-06] MEDS: MIDAZOLAM DRIP 50 mg/50mL 50 ML IV SCH (15:12)
[2020-04-06] MEDS: fentaNYL Drip 2500mCg/250mlNS 250 ML IV SCH (15:12)
[2020-04-06] MEDS: NOREPINEPHRINE 8 MG/250ML KIT 250 ML IV SCH (15:12)
[2020-04-06] MEDS ORDERED: FUROSEMIDE 20 MG/2 ML VIAL IV ONE (18:45)
--- NOTE | 2020-04-06 19:00 | NUR ---
Opening shift note: Patient with Trach in place. VENT settings: AC 12, TV 400, FIO2 40, PEEP 7, O2 SAT 96%, bilateral lung sounds diminished. PEG tube in place and clamped. Taylor catheter draining via gravity with yellow urine. Safety precautions in place, will continue to monitor.
--- NOTE | 2020-04-06 19:07 | NUR ---
No distress noted, pt. tachypnedevin, and oncoming aware, report given to STAS Goodman. Care of pt assumed per NOC RN, day shift RN relinquished care and signed off.
[2020-04-06] MEDS: SODIUM CHLORIDE 0.9% 1,000 ML IV SCH (19:15)
[2020-04-06] MEDS ORDERED: VANCOMYCIN PER PHARMACY 0 MG IV SCH (19:15)
[2020-04-06] MEDS ORDERED: VANCOMYCIN 1GM/250ML 250 ML IV ONE (19:15)
--- NOTE | 2020-04-06 20:00 | NUR ---
PEG tube feedings: Patient was assessed and RN noted no residuals at this time. Tube feedings started at 10mL/hr. RN will continue to monitor and assess patient and residuals. Feeding will be advanced per patient toleration of feedings and amount of residuals.
[2020-04-06] MEDS: CEFEPIME 1 GM in SODIUM CHL 0.9% 50 ML IV SCH (22:00)
[2020-04-06] MEDS: GENTAMICIN SULF 0.3% OPTH(EYE) OINT 3.5GM EACHEYE SCH (22:00)
--- NOTE | 2020-04-06 23:36 | NUR ---
Bed bath: Bed bath and linen change provided. Opti-foam to sacrum changed. Patient tolerated nursing intervention well.
[2020-04-07] VITALS (104 sets, daily range): BP systolic 102–142; BP diastolic 64–89
--- NOTE | 2020-04-07 | NUR ---
PEG tube feedings: Patient was assessed and RN noted 5mL of residuals at this time. Tube feedings increased to 20mL/hr. RN will continue to monitor and assess patient and residuals. Feeding will be advanced per patient toleration of feedings and amount of residuals.
[2020-04-07] MEDS: SODIUM CHLORIDE 0.9% 1,000 ML IV SCH ×4 (01:47→21:59)
[2020-04-07 04:51] LABS: Basophils # (auto) 0 10 ^3/uL (0-0.2); Basophils % (auto) 0.3 % (0.0-2.0); Eosinophils # (auto) 0.2 10 ^3/uL (0-0.8); Eosinophils % (auto) 1.4 % (0.0-7.0); Hematocrit 40.4 % (36.0-46.0); Hemoglobin 13.4 g/dL (12.2-16.2); Lymphocytes % (auto) 16.3 % (10.0-50.0); Mean Corpuscular Hemoglobin 30.8 pg (28.0-32.0); Mean Corpuscular Hgb Conc. 33.2 g/dL (32.0-36.0); Mean Corpuscular Volume 92.9 fL (80.0-100.0); Monocytes # (auto) 1.5 10 ^3/uL (0-1.3); Monocytes % (auto) 12.2 % (0.0-12.0); Neutrophils # (auto) 8.7 10 ^3/uL (1.6-8.6); Neutrophils % (auto) 69.8 % (37.0-80.0); Nucleated Red Blood Cells % 0.1 %; Platelet Count (auto) 145 10^3/uL (140-450); Red Blood Cells 4.35 10^6/uL (4.0-5.20); Red Cell Distribution Width 13.3 % (11.8-14.3); White Blood Cell 12.5 10^3/uL (4.4-10.8)
--- NOTE | 2020-04-07 05:00 | NUR ---
PEG tube feedings: Patient was assessed and RN noted 5mL of residuals at this time. Tube feedings increased to 30mL/hr. RN will continue to monitor and assess patient and residuals. Feeding will be advanced per patient toleration of feedings and amount of residuals.
[2020-04-07 05:08] LABS: Calcium 7.9 mg/dL (8.5-10.1); Potassium 4.1 mmol/L (3.5-5.1)
[2020-04-07] MEDS: InsuLIN REG 1unit/0.01ml Soln (100units/ml) SC SCH ×3 (05:09→17:23)
[2020-04-07] MEDS: ACCU-CHEK COMFORT CURVE STRIP VI SCH ×3 (05:09→17:23)
[2020-04-07 05:11] LABS: BUN/Creatinine Ratio 18.4
[2020-04-07] MEDS: BACLOFEN 10 MG TAB PO SCH ×3 (05:12→22:00)
[2020-04-07] MEDS: CEFEPIME 1 GM in SODIUM CHL 0.9% 50 ML IV SCH ×3 (06:00→22:00)
--- NOTE | 2020-04-07 07:11 | NUR ---
REPORT RECEIVED FROM PAPER COLORER RN
--- NOTE | 2020-04-07 08:15 | NUR ---
DR. MENDOSA AT BEDSIDE
[2020-04-07] MEDS: VANCOMYCIN 1GM/250ML 250 ML IV SCH ×2 (08:35→22:35)
[2020-04-07] MEDS: MORPHINE SULF INJ 2 MG/ML SYRINGE 1ML IV PRN (08:53)
[2020-04-07 08:57] LABS: INR 1.03 (0.9-1.15); Partial Thromboplastin Time 26.8 sec (23.0-31.2)
--- NOTE | 2020-04-07 09:18 | NUR ---
family updated on patient status
[2020-04-07] MEDS: POTASSIUM EFFERVESENT TAB 25 MEQ GT SCH (09:52)
[2020-04-07] MEDS: GENTAMICIN SULF 0.3% OPTH(EYE) OINT 3.5GM EACHEYE SCH ×2 (09:53→21:59)
[2020-04-07] MEDS: PANTOPRAZOLE 40 MG/10 ML VIAL INJ IV SCH (09:53)
[2020-04-07] MEDS: MEMANTINE HCL 5 MG TAB PO SCH ×2 (09:53→22:00)
--- NOTE | 2020-04-07 11:05 | NUR ---
PICC CONSENT OBTAINED
--- NOTE | 2020-04-07 12:41 | NUR ---
re-assessment Per consult information regarding POA, patients sister requesting information. I have informed Krissy patients sister [phone] that she would have to go through the court system to obtain POA while patient is on a vent. I also infomred Krissy that once patient is extubated and able to make decisions on her own, she can then appoint POA. Krissy verbalized understanding. Addendum: 04/07/20 at 1243 by Bessie Vidal Amended: Links added.
--- NOTE | 2020-04-07 13:05 | NUR ---
DR. SALAZAR AT BEDSIDE
--- NOTE | 2020-04-07 14:17 | NUR ---
Nutrition Followup Note Wt: 78.3 kg Pt`s intubated sedated when rounded this am. pt is currently NPO on EN support with Osmolite @ 30 ml/hr providing 864 kcals and 39 gm proteins. pt with inadequate EN support Est Energy needs BW 49 [id number] kcals (25-30 kcal/kgBW), Est Protein needs: 49-59 gms/day (1.0-1.2 gm/kgBW). Will continue to monitor and reassess prn Labs: CA 7.9 L. rest labs wnl for today BM: pt with no BM recorded per RN note Skin: Bs 13 mod risk, full details in resident care supervisor note PES: Altered nutrition related lab values r.t current chronic medical condition aeb elev BUN Inadequate PO intake r.t current chronic medical condition aeb pt`s with dysphagia Comments: Will continue to monitor NPO status, skin status, pertinent labs and weight trends. Will f/u in 2-3 days. 1) Advance TF of Osmolite 1.2 to reach goal rate of 50ml/hr as tolerated 2) continue current plan of care
--- NOTE | 2020-04-07 15:27 | NUR ---
PICC NURSE AT BEDSIDE
--- NOTE | 2020-04-07 15:51 | NUR ---
DR. SORIANO AT BEDSIDE
[2020-04-07] MEDS: MIDAZOLAM DRIP 50 mg/50mL 50 ML IV SCH (15:52)
[2020-04-07] MEDS: fentaNYL Drip 2500mCg/250mlNS 250 ML IV SCH (16:20)
--- NOTE | 2020-04-07 16:39 | NUR ---
PICC line placement Patient significant other educated on need for PICC line placement. All risks and benefits explained and all questions and concerns addressed prior to procedure. Noted past medical history and allergies with no contraindications. INR and Plt counts within acceptable range. 5 fr PICC line inserted via right basilic vein using [employer] US and Tip Location System. Sterile technique with maximum barrier precautions utilized. Blood return obtained from each of the 3 lumens and each flushed easily with NS using proper technique. PICC secured with Stat-lock; biodisc and occlusive dressing applied. Stat portable chest x-ray obtained for PICC tip placement. *Baseline Arm Circumference 26 cm, internal length 33 cm, external length 3 cm. Total PICC length 36 cm. PICC lot # [id number]
[2020-04-07] MEDS ORDERED: LIDOCAINE 1% (LOCAL ANESTH.) PF 5ml SDV ID ONE (16:45)
[2020-04-07] MEDS: NOREPINEPHRINE 8 MG/250ML KIT 250 ML IV SCH (16:50)
--- NOTE | 2020-04-07 16:59 | NUR ---
Okay to use PICC line Xray completed. Okay to use PICC line. Harris MCCLELLAND notified
--- NOTE | 2020-04-07 17:30 | NUR ---
PARTIAL LINEN CHANGE PERFORMED AT THIS TIME
[2020-04-07] MEDS: ENOXAPARIN SOD 40 MG/0.4 ML SYRINGE SC SCH (19:52)
--- NOTE | 2020-04-07 20:00 | NUR ---
WOUND ASSESSMENT DTI NOTED ON SACRUM AND IT COVERED WITH OPTIFOAM GENTLE DRESSING. WILL TAKE PHOTO FOR REFERENCE.
[2020-04-07] MEDS: SODIUM CHLOR 0.9% PF (SALINE LOCK) 10ML VIAL/SYR IV SCH (22:00)
[2020-04-08] VITALS (105 sets, daily range): BP systolic 100–164; BP diastolic 42–102
--- NOTE | 2020-04-08 02:35 | NUR ---
Network[employer] WAS DOWN FROM 2300 TO 0230. SEE PAPER CHARTING. Addendum: 04/08/20 at 0329 by Heaven Arellano RN 0000 ACCUCHEK WAS 142. 2 UNITS REGULAR INSULIN WAS GIVEN AND IT WAS WITNESSED BY JACQUELINE WATSON RN
[2020-04-08] MEDS: SODIUM CHLORIDE 0.9% 1,000 ML IV SCH ×4 (04:57→20:59)
[2020-04-08] MEDS: CEFEPIME 1 GM in SODIUM CHL 0.9% 50 ML IV SCH ×3 (05:33→21:47)
[2020-04-08] MEDS: ACCU-CHEK COMFORT CURVE STRIP VI SCH ×3 (05:37→17:22)
[2020-04-08] MEDS: InsuLIN REG 1unit/0.01ml Soln (100units/ml) SC SCH ×3 (05:37→17:22)
[2020-04-08] MEDS: BACLOFEN 10 MG TAB PO SCH ×3 (05:38→21:48)
[2020-04-08 05:41] LABS: Basophils # (auto) 0 10 ^3/uL (0-0.2); Basophils % (auto) 0.2 % (0.0-2.0); Eosinophils # (auto) 0.2 10 ^3/uL (0-0.8); Eosinophils % (auto) 1.6 % (0.0-7.0); Hematocrit 35.4 % (36.0-46.0); Hemoglobin 11.8 g/dL (12.2-16.2); Lymphocytes % (auto) 9.2 % (10.0-50.0); Mean Corpuscular Hemoglobin 30.6 pg (28.0-32.0); Mean Corpuscular Hgb Conc. 33.2 g/dL (32.0-36.0); Monocytes # (auto) 1.5 10 ^3/uL (0-1.3); Monocytes % (auto) 13.5 % (0.0-12.0); Neutrophils # (auto) 8.4 10 ^3/uL (1.6-8.6); Neutrophils % (auto) 75.5 % (37.0-80.0); Platelet Count (auto) 152 10^3/uL (140-450); Red Blood Cells 3.84 10^6/uL (4.0-5.20); Red Cell Distribution Width 13.8 % (11.8-14.3); White Blood Cell 11.1 10^3/uL (4.4-10.8)
[2020-04-08 05:58] LABS: Calcium 7.1 mg/dL (8.5-10.1); Potassium 3.3 mmol/L (3.5-5.1)
[2020-04-08 06:02] LABS: BUN/Creatinine Ratio 32.3
--- NOTE | 2020-04-08 06:30 | NUR ---
MATHEUS OLIVER REGARDING TRACH REPLACEMENT. Addendum: 04/09/20 at 0700 by Heaven Arellano RN ERROR ON TIME CORRECT TIME 04/08 2030
--- NOTE | 2020-04-08 07:11 | NUR ---
REPORT RECEIVED FROM GAS JOCKEY RN
[2020-04-08] MEDS: MIDAZOLAM DRIP 50 mg/50mL 50 ML IV SCH ×2 (08:42→20:45)
--- NOTE | 2020-04-08 09:00 | NUR ---
D/C Planning Regarding social service consult for [facility]. Faxed clinical information to [facility]. Per Wilda with [facility] order is being reviewed. KENNETH Tubbs will follow up with patient Health plan.
[2020-04-08] MEDS: PANTOPRAZOLE 40 MG/10 ML VIAL INJ IV SCH (09:28)
[2020-04-08] MEDS: POTASSIUM EFFERVESENT TAB 25 MEQ GT SCH (09:28)
[2020-04-08] MEDS: GENTAMICIN SULF 0.3% OPTH(EYE) OINT 3.5GM EACHEYE SCH ×2 (09:29→21:49)
[2020-04-08] MEDS: SODIUM CHLOR 0.9% PF (SALINE LOCK) 10ML VIAL/SYR IV SCH ×2 (09:29→21:48)
[2020-04-08] MEDS: MEMANTINE HCL 5 MG TAB PO SCH ×2 (09:29→21:48)
[2020-04-08] MEDS: ENOXAPARIN SOD 40 MG/0.4 ML SYRINGE SC SCH (09:29)
--- NOTE | 2020-04-08 09:35 | NUR ---
Spoke with Preeti Ambrose for [facility] and gave report and faxed a clinical packet to the facility, for the patient to be transferred.
--- NOTE | 2020-04-08 09:45 | NUR ---
[facility] UPDATED ON PATIENT STATUS
--- NOTE | 2020-04-08 10:00 | NUR ---
PATIENT REPOSITIONED PATIENT TOLERATED WELL
--- NOTE | 2020-04-08 11:31 | NUR ---
BLOOD DRAWN FROM PICC LINE
--- NOTE | 2020-04-08 12:00 | NUR ---
WOUND CARE NOTE: IN TO SEE PATIENT AT THIS TIME FOR SKIN INTEGRITY MONITORING. PATIENT CONTINUES TO BE INTUBATED, SEDATED, RESTING ON SPECIALTY AIR MATTRESS. SINCE LAST ASSESSMENT, PATIENT HAS DEVELOPED AN INTACT DTI TO THE SACRUM. WOUND PHOTO TAKEN UPON ASSESSMENT OVERNIGHT BY BEDSIDE NURSE FOR REFERENCE, AND AGAIN AT THIS TIME FOR REFERENCE. DARK PURPLE ECCHYMOSIS NOTED, MEASURING 3 X 6 CM. SKIN INTACT, NO BLISTERING NOTED AT THIS POINT. ALL OTHER BONY PROMINENCES ARE BLANCHABLE. PATIENT IS WEARING ANTIONE FOAM BOOTS TO EACH FOOT/HEEL. PATIENT REPOSITIONED ONTO RIGHT SIDE, REDISTRIBUTING PRESSURE POINTS USING PILLOWS. SKIN/WOUND CARE PLAN UPDATED. RECOMMEND: SIDE TO SIDE POSITIONING ONLY, AVOIDING SUPINE; CONTINUATION WITH ALL OTHER WOUND CARE ORDERS PREVIOUSLY PRESCRIBED BY MD. WOUND CARE TEAM WILL CONTINUE TO MONITOR. Addendum: 04/08/20 at 1600 by Kianna Ramos RN Amended: Links added.
--- NOTE | 2020-04-08 12:01 | NUR ---
ORAL CARE PERFORMED
--- NOTE | 2020-04-08 12:04 | NUR ---
Spoke with Preeti COOPER at [facility] and stated they received the packet and it is being reviewed.
--- NOTE | 2020-04-08 12:05 | NUR ---
wound care nurse at bedside
[2020-04-08] MEDS: VANCOMYCIN 1GM/250ML 250 ML IV SCH (12:47)
--- NOTE | 2020-04-08 14:00 | NUR ---
Called Wilda [employer] Sales Representative at [facility] [phone], stated she is waiting for authorization for the patient, the family wants her to go to [facility] in [place] and she has been approved to go there.
--- NOTE | 2020-04-08 15:47 | NUR ---
FAMILY UPDATED ON PATIENT STATUS. ALL QUESTIONS AND CONCERNS ADDRESSED AT THIS TIME
[2020-04-08] MEDS: fentaNYL Drip 2500mCg/250mlNS 250 ML IV SCH (16:20)
--- NOTE | 2020-04-08 16:29 | NUR ---
PARTIAL LINEN CHANGE PERFORMED AT THIS TIME
[2020-04-08] MEDS: NOREPINEPHRINE 8 MG/250ML KIT 250 ML IV SCH (16:50)
--- NOTE | 2020-04-08 20:30 | NUR ---
DR Jose KEBEDE AT BEDSIDE UPDATED ON PATIENT'S STATUS. NEW ORDERS RECEIVED.
[2020-04-08] MEDS: POTASSIUM CHL 20MEQ/100ML 100 ML IV SCH ×2 (20:43→23:02)
[2020-04-08] MEDS ORDERED: FUROSEMIDE 20 MG/2 ML VIAL IV ONE (21:00)
[2020-04-08] MEDS: ACETAMINOPHEN 650 mg PER 20 mL UD GT PRN (21:54)
[2020-04-09] VITALS (99 sets, daily range): BP systolic 83–135; BP diastolic 48–88
[2020-04-09] MEDS: InsuLIN REG 1unit/0.01ml Soln (100units/ml) SC SCH ×5 (00:04→23:59)
[2020-04-09] MEDS: ACCU-CHEK COMFORT CURVE STRIP VI SCH ×5 (00:04→23:58)
[2020-04-09] MEDS: VANCOMYCIN 1GM/250ML 250 ML IV SCH ×2 (03:22→17:17)
[2020-04-09] MEDS: BACLOFEN 10 MG TAB PO SCH ×3 (05:51→22:16)
[2020-04-09] MEDS: CEFEPIME 1 GM in SODIUM CHL 0.9% 50 ML IV SCH ×3 (05:51→22:16)
[2020-04-09 06:51] LABS: Basophils # (auto) 0 10 ^3/uL (0-0.2); Basophils % (auto) 0.1 % (0.0-2.0); Eosinophils # (auto) 0.1 10 ^3/uL (0-0.8); Eosinophils % (auto) 0.7 % (0.0-7.0); Hemoglobin 11.5 g/dL (12.2-16.2); Lymphocytes # (auto) 1.1 10 ^3/uL (0.4-5.4); Lymphocytes % (auto) 7.2 % (10.0-50.0); Mean Corpuscular Hemoglobin 30.5 pg (28.0-32.0); Mean Corpuscular Hgb Conc. 32.8 g/dL (32.0-36.0); Mean Corpuscular Volume 92.9 fL (80.0-100.0); Monocytes # (auto) 2.2 10 ^3/uL (0-1.3); Monocytes % (auto) 15.1 % (0.0-12.0); Neutrophils # (auto) 11.3 10 ^3/uL (1.6-8.6); Neutrophils % (auto) 76.9 % (37.0-80.0); Platelet Count (auto) 165 10^3/uL (140-450); Red Blood Cells 3.77 10^6/uL (4.0-5.20); Red Cell Distribution Width 14.1 % (11.8-14.3); White Blood Cell 14.7 10^3/uL (4.4-10.8)
[2020-04-09 06:54] LABS: BUN/Creatinine Ratio 35.3; Potassium 3.9 mmol/L (3.5-5.1)
[2020-04-09] MEDS: SODIUM CHLORIDE 0.9% 1,000 ML IV SCH ×2 (08:21→17:09)
[2020-04-09] MEDS: GENTAMICIN SULF 0.3% OPTH(EYE) OINT 3.5GM EACHEYE SCH ×2 (10:51→22:15)
[2020-04-09] MEDS: MEMANTINE HCL 5 MG TAB PO SCH ×2 (10:52→22:17)
[2020-04-09] MEDS: PANTOPRAZOLE 40 MG/10 ML VIAL INJ IV SCH (10:52)
[2020-04-09] MEDS: SODIUM CHLOR 0.9% PF (SALINE LOCK) 10ML VIAL/SYR IV SCH ×2 (10:52→22:16)
[2020-04-09] MEDS: POTASSIUM EFFERVESENT TAB 25 MEQ GT SCH (10:52)
--- NOTE | 2020-04-09 11:39 | NUR ---
Nutrition Followup Note Wt: 78.3 kg Pt`s intubated sedated when rounded this am. pt is currently NPO on EN support with Osmolite @ 50 ml/hr providing 1440 kcals and 65 gm proteins. pt with adequate EN support Est Energy needs BW 49 [id number] kcals (25-30 kcal/kgBW), Est Protein needs: 49-59 gms/day (1.0-1.2 gm/kgBW). Will continue to monitor and reassess prn Labs: CA 7.0 L, GLU 145 H BM: pt with no BM recorded per RN note Skin: Bs 12 high risk, full details in care management associate note PES: Altered nutrition related lab values r.t current chronic medical condition aeb elev BUN Inadequate PO intake r.t current chronic medical condition aeb pt`s with dysphagia Comments: Will continue to monitor NPO status, EN tolerance, skin status, pertinent labs and weight trends. Will f/u in 2-3 days. 1) Advace diet as medically feasible. 2) continue current plan of care
--- NOTE | 2020-04-09 12:08 | NUR ---
Blood glucose 67, Dextrose 1 amp given.
--- NOTE | 2020-04-09 12:51 | NUR ---
Patient's sister updated via telephone. All questions and concerns addressed.
--- NOTE | 2020-04-09 13:14 | NUR ---
Complete bath given. Linens and gown change. Oral care and suction provided. Patient turned and repositioned. Safety maintained, will continue to monitor.
--- NOTE | 2020-04-09 15:15 | NUR ---
Spoke with Preeti COOPER at [facility] regarding the transfer to SNF, stated her doctors had spoke with the patient's doctors here and they want the trach to be changed and the patient off drips and then want her to go to a sub acute.
[2020-04-09] MEDS: fentaNYL Drip 2500mCg/250mlNS 250 ML IV SCH (16:20)
[2020-04-09] MEDS: NOREPINEPHRINE 8 MG/250ML KIT 250 ML IV SCH (17:09)
[2020-04-09] MEDS: MIDAZOLAM DRIP 50 mg/50mL 50 ML IV SCH (17:09)
[2020-04-09] MEDS: Osmolite 1.2 Cal One Liter GT SCH (17:10)
--- NOTE | 2020-04-09 18:45 | NUR ---
AT BEDSIDE FOR ROUTINE VENT CHECK. PT NOTED TO HAVE HIGH PEAK PRESSURES. HME CHECKED. PT SUCTIONED FOR ZERO RETURN. THERE WAS SOME NOTICEABLE RESISTANCE WHEN ATTEMPTING TO SUCTION. PRESSURES REMAINED HIGH. PT WAS THEN TRANSITIONED TO PC TARGETING CURRENT VOLUMES. WILL DRAW ABG TO CONFIRM. PAGE PLACED TO MD WOLF.
--- NOTE | 2020-04-09 19:20 | NUR ---
OPENING NOTE RECEIVED REPORT FROM DAY SHIFT RN CASEY MCCLELLAND. PT IS INTUBATED AND SEDATED. BED IS LOCKED AT LOWEST POSITION, SIDE RAILS ARE UP. WILL CONTINUE TO MONITOR.
--- NOTE | 2020-04-09 19:30 | NUR ---
AT BEDSIDE DR MENDOSA
--- NOTE | 2020-04-09 20:15 | NUR ---
AT BEDSIDE DR.L KEBEDE AT BEDSIDE.UPDATED ON PATIENT'S CONDITION. MD WANTS TO TURN OFF SEDATION.
--- NOTE | 2020-04-09 20:25 | NUR ---
FAMILY RECEIVED PHONE CALL FROM PATIENT'S SISTER YI. PASSWORD CONFIRMED. FAMILY UPDATED ON PATIENT'S CONDITION AND PLAN OF CARE BY DR. Elizabeth KEBEDE.
[2020-04-09] MEDS: MORPHINE SULF INJ 2 MG/ML SYRINGE 1ML IV PRN (20:45)
[2020-04-10] VITALS (61 sets, daily range): BP systolic 89–118; BP diastolic 53–74
--- NOTE | 2020-04-10 00:15 | NUR ---
DAUGHTER ON THE PHONE (YAZMIN) PW VERIFIED. DISCUSSED PT STATUS AND POC. ALL QUESTIONS AND CONCERNS ADDRESSED.
[2020-04-10] MEDS: MORPHINE SULF INJ 2 MG/ML SYRINGE 1ML IV PRN ×2 (01:09→12:58)
--- NOTE | 2020-04-10 04:20 | NUR ---
Radiology at bedside
[2020-04-10 04:22] LABS: Basophils # (auto) 0 10 ^3/uL (0-0.2); Basophils % (auto) 0.1 % (0.0-2.0); Eosinophils # (auto) 0.1 10 ^3/uL (0-0.8); Eosinophils % (auto) 0.3 % (0.0-7.0); Hematocrit 37.5 % (36.0-46.0); Hemoglobin 12.3 g/dL (12.2-16.2); Lymphocytes # (auto) 0.9 10 ^3/uL (0.4-5.4); Lymphocytes % (auto) 4.8 % (10.0-50.0); Mean Corpuscular Hemoglobin 30.5 pg (28.0-32.0); Mean Corpuscular Hgb Conc. 32.9 g/dL (32.0-36.0); Mean Corpuscular Volume 92.7 fL (80.0-100.0); Monocytes # (auto) 2.7 10 ^3/uL (0-1.3); Monocytes % (auto) 14.8 % (0.0-12.0); Neutrophils # (auto) 14.6 10 ^3/uL (1.6-8.6); Platelet Count (auto) 208 10^3/uL (140-450); Red Blood Cells 4.04 10^6/uL (4.0-5.20); Red Cell Distribution Width 14.5 % (11.8-14.3); White Blood Cell 18.3 10^3/uL (4.4-10.8)
[2020-04-10 04:40] LABS: BUN/Creatinine Ratio 38.9; Calcium 7.3 mg/dL (8.5-10.1)
[2020-04-10 05:01] LABS: Potassium 4.8 mmol/L (3.5-5.1)
[2020-04-10] MEDS: InsuLIN REG 1unit/0.01ml Soln (100units/ml) SC SCH ×3 (06:00→18:00)
[2020-04-10] MEDS: CEFEPIME 1 GM in SODIUM CHL 0.9% 50 ML IV SCH ×3 (06:20→21:27)
[2020-04-10] MEDS: ACCU-CHEK COMFORT CURVE STRIP VI SCH ×3 (06:22→18:00)
[2020-04-10] MEDS: BACLOFEN 10 MG TAB PO SCH ×3 (06:22→21:31)
[2020-04-10] MEDS: VANCOMYCIN 1GM/250ML 250 ML IV SCH ×2 (07:02→21:21)
--- NOTE | 2020-04-10 09:41 | NUR ---
Resumed care at 0715, orders reviewed and ongoing assessments being done. Being treated for multiple problems, S/P tracheostomy and PEG placed this hospitalization. Plan of care to transfer to LTAC. Sedation has been weaned off on previous shift. Does open eyes spontaneously with no sustain eye contact. History of ALS and requires total care, limbs flaccid. Noted swelling and redness to right upper arm were PICC line is placed. Able to draw blood back and flush normally. Spoke with Krissy Nolasco (sister) via phone. Updated on current condition. Asked questions that required MD response. Call out to Dr. Jose Miller.
[2020-04-10] MEDS ORDERED: ENOXAPARIN SOD 40 MG/0.4 ML SYRINGE SC SCH (10:00)
[2020-04-10] MEDS: GENTAMICIN SULF 0.3% OPTH(EYE) OINT 3.5GM EACHEYE SCH ×2 (10:30→21:28)
[2020-04-10] MEDS: PANTOPRAZOLE 40 MG/10 ML VIAL INJ IV SCH (10:31)
[2020-04-10] MEDS: ENOXAPARIN SOD 40 MG/0.4 ML SYRINGE SC SCH (10:32)
[2020-04-10] MEDS: MEMANTINE HCL 5 MG TAB PO SCH ×2 (10:32→21:29)
[2020-04-10] MEDS: POTASSIUM EFFERVESENT TAB 25 MEQ GT SCH (10:32)
[2020-04-10] MEDS: SODIUM CHLOR 0.9% PF (SALINE LOCK) 10ML VIAL/SYR IV SCH ×2 (10:32→21:28)
[2020-04-10] MEDS: MIDAZOLAM DRIP 50 mg/50mL 50 ML IV SCH (12:48)
--- NOTE | 2020-04-10 13:00 | NUR ---
Respiratory note: PAGED TO ROOM DUE TO DESATURATION. SUCTIONED PT WITH NO RETURN. PT STARTED TO BREATH IN THE 40'S WITH SHALLOW BREATHS. PT BECAME TACHYCARDIC ALSO. TOOK PT OFF VENT AND MANUALLY BAGGED AT 15 LPM AT 1225. MANUALLY VENTILATED UNTIL 1300. SUCTIONED PT AND GOT MODERATE YELLOW BROWN SECRETIONS. LAVAGED AND SXN AND GOT A RAISIN SIZED PLUG. PT VITALS STARTED TO RETURNED TO NORMAL. PT PLACED BACK ON VENT.
--- NOTE | 2020-04-10 13:05 | NUR ---
Respiratory note: PER DR. SORIANO NO DAILY ABG AND CHEST XRAY NEEDED. ONLY NEED IF PT STATUS CHANGES.
--- NOTE | 2020-04-10 15:56 | NUR ---
Dr. Elizabeth Miller called back at 1152. Updated him on condition and made him aware that family requested for him to phone them. At 1225 noted pulse oximetry measurement down to 86%, via central monitor. In room and noted eyes wide open and fast shallow breaths. RR >30, HR steadily increasing 110-130 and Co2 monitoring also steadily increasing 60-70. More awake and appeared to be in respiratory distress. Hannah RT called to bedside and disconnected from ventilator and manually bagged. Suctioned twice with small amount of secretions. Bagged from 1225 to 1300. Hannah suctioned a raison size plug via tracheostomy tube. Immediately pulse oximetry improved to normal with decrease in work of breathing and HR also returning to baseline. During episode eyes maintained open but not able to follow any direction. Dr. Weiss was in at 1300 and made him aware of above. Okay to restart sedation and maintain comfortable. Made him aware of swelling to right upper arm (PICC LINE). Okay to ordered a ultrasound to rule out clot. Ultrasound done and awaiting radiology reading. Spoke with Janie sister and Geri daughter at 1513. Made her aware of right upper arm swelling and the possibility of removing PICC line. Obtained consent to insert a new pick line if necessary. Awaiting Dr. Miller to round.
[2020-04-10] MEDS: fentaNYL Drip 2500mCg/250mlNS 250 ML IV SCH (16:20)
[2020-04-10] MEDS ORDERED: FLUCONAZOLE 200MG/100ML 100 ML IV ONE (16:30)
[2020-04-10] MEDS: NOREPINEPHRINE 8 MG/250ML KIT 250 ML IV SCH (16:50)
[2020-04-10] MEDS: ACETAMINOPHEN 650 mg PER 20 mL UD GT PRN (17:39)
--- NOTE | 2020-04-10 18:21 | NUR ---
Respiratory note: RECEIVED PT ON VENT V13, VENT CONNECTED TO RED OUTLET AND O2 SOURCE ALARMS ARE SET AND AUDIBLE. AMBU BAG AND MASK AT BEDSIDE. EXTRA TRACH ALSO AT BEDSIDE. BS ARE COURSE T/O, SXD VIA TRACH FOR LARGE AMOUNT OF THICK ROSARIO/YELLOW/BROWN TINGE. SPUTUM SAMPLE OBTAINED AND SENT TO LAB AT THIS TIME. WILL CONTINUE TO MONITOR.
--- NOTE | 2020-04-10 18:53 | NUR ---
No DVT to right upper arm per ultrasound. Continue to use PICC line to right upper arm, maintaining arm elevated. Spiked a temperature to 100.4 orally. Cooling measures initiated and Tylenol given per order. Urine, blood and sputum cultures ordered. Dr. Miller was in at 1700. Per Dr[address] Miller discontinue sedation once again. Versed was weaned off. Remains drowsy but does open eyes when asked to. Made Dr. Miller that family still requested to speak with him. Per Dr. Miller will call later today.
--- NOTE | 2020-04-10 19:30 | NUR ---
OPENING NOTE RECEIVED REPORT FROM DAY SHIFT RN JAYJAY. PT IS VENTED VIA TRACH, EASILY ARROUSABLE. PT ORIENTED TO STAFF AND POC. BED IS LOCKED AT LOWEST POSITION, SIDE RAILS ARE UP. WILL CONTINUE TO MONITOR.
--- NOTE | 2020-04-10 20:10 | NUR ---
SISTER KEVIN ON THE PHONE PW VERIFIED. DISCUSSED PT STATUS AND POC. SISTER REQUESTED TO SPEAK TO PATIENT. PORTABLE PHONE PLACED AT PATIENTS EAR. WILL CONTINUE TO MONITOR.
--- NOTE | 2020-04-10 20:50 | NUR ---
SISTER KEVIN ON THE PHONE PW VERIFIED. SISTER STATING SHE WANTS THE DR TO CALL [facility] FOR TRANSFER BECAUSE [facility] IS [facility] AND SHE SHOULD BE THERE". PER SISTER SHE STATES THE PATIENT WAS BROUGHT TO [facility] DUE TO THE PATIENTS' "BOYFRIENDS CONVENIENCE" AND SHE WANTS THE DR TO "SPEAK TO [facility] DR AT NUMBER ". WILL NOTIFY
--- NOTE | 2020-04-10 23:10 | NUR ---
NEURO STATUS PT MORE AWAKE, FOLLOWING SIMPLE COMMANDS. WILL CONTINUE TO MONITOR.
[2020-04-11] VITALS (99 sets, daily range): BP systolic 87–151; BP diastolic 42–93
[2020-04-11] MEDS: ACCU-CHEK COMFORT CURVE STRIP VI SCH ×4 (00:18→17:35)
[2020-04-11 05:10] LABS: Basophils # (auto) 0 10 ^3/uL (0-0.2); Basophils % (auto) 0.1 % (0.0-2.0); Eosinophils # (auto) 0.1 10 ^3/uL (0-0.8); Eosinophils % (auto) 0.9 % (0.0-7.0); Hematocrit 31.8 % (36.0-46.0); Hemoglobin 10.6 g/dL (12.2-16.2); Lymphocytes # (auto) 1.8 10 ^3/uL (0.4-5.4); Lymphocytes % (auto) 10.9 % (10.0-50.0); Mean Corpuscular Hemoglobin 30.5 pg (28.0-32.0); Mean Corpuscular Hgb Conc. 33.3 g/dL (32.0-36.0); Mean Corpuscular Volume 91.6 fL (80.0-100.0); Monocytes # (auto) 2.5 10 ^3/uL (0-1.3); Monocytes % (auto) 15.3 % (0.0-12.0); Neutrophils # (auto) 11.9 10 ^3/uL (1.6-8.6); Neutrophils % (auto) 72.8 % (37.0-80.0); Platelet Count (auto) 245 10^3/uL (140-450); Red Blood Cells 3.48 10^6/uL (4.0-5.20); Red Cell Distribution Width 14.4 % (11.8-14.3); White Blood Cell 16.4 10^3/uL (4.4-10.8)
[2020-04-11 05:27] LABS: Potassium 4.2 mmol/L (3.5-5.1)
[2020-04-11] MEDS: CEFEPIME 1 GM in SODIUM CHL 0.9% 50 ML IV SCH ×3 (05:30→21:17)
[2020-04-11 05:31] LABS: BUN/Creatinine Ratio 38.1; Calcium 7.1 mg/dL (8.5-10.1)
[2020-04-11] MEDS: BACLOFEN 10 MG TAB PO SCH ×3 (05:32→22:20)
[2020-04-11] MEDS: InsuLIN REG 1unit/0.01ml Soln (100units/ml) SC SCH ×4 (05:37→18:00)
--- NOTE | 2020-04-11 05:58 | NUR ---
Respiratory note: PT RECEIVED ON VENT #V13,PLUGGED INTO A RED OUTLET AND PROPER O2 SOURCE. PT FOUND ON PCV RR 18, PI 30, I TIME 1.1, PEEP 7, FIO2 40%, A VENT CLARIFICATION PLACED. PT IS TRACHED WITH A 7.5 BOVANA. NO SKIN BREAKDOWN NOTED.ALARMS ARE PROPERLY SET, FUNCTIONING, AND AUDIBLE. BILATERAL BS ARE COARSE, SUCTIONED WITH SCANT RETURN. PT IS AWAKE BUT GROGGY.GAG REFLEX INTACT. SKIN IS WARM AND DRY TO THE TOUCH WITH EDEMA NOTED BILATERALLY ON ALL APPENDICULARS. POC:MAINTAIN ADEQUATE OXYGENATION.VENTILATION,AND PULMONARY HYGIENE.
--- NOTE | 2020-04-11 06:41 | NUR ---
PICC Line Dressing Change PICC line dressing change done with a sterile technique. Cleansed with chloraprep scrub/betadine. Stat lock, and bio-patch as available. Occlusive dressing applied.
--- NOTE | 2020-04-11 07:30 | NUR ---
REPORT REPORT RECEIVED FROM CELSO RNS, MARCELINO. BEDSIDE CHECK DONE.
--- NOTE | 2020-04-11 07:45 | NUR ---
ELIMINATION PT WITH MODERATE AMOUNT OF LIQUID BROWN BM. KRYSTLE CARE GIVEN AND FLEXISEAL PLACED. TOLERATED WELL .
--- NOTE | 2020-04-11 08:00 | NUR ---
ASSESSMENT PT AWAKE AND FOLLOWS SIMPLE COMMANDS. ON THE VENTILATOR TO TRACH SIZE 7.5 . ON PRESSURE CONTROL MODE, RATE 18, PRESSURE 30, 40% FIO2 AND PEEP OF 7. LUNGS COARSE ON INSPIRATION AND CLEAR ON EXPIRATION. SUCTIONED VOA TRACH WITH SMALL AMOUNT OF THIN CLEAR FLUID RETURNED. O2 SAT OF 96%. TELE SR 65 WITH BBB AND PAC, ELEVATED ST IN LEADS AVR AND V, AND DEPRESSED ST IN LEADS I, II AND AVF. PALPABLE PULSES TO ALL EXTREMITIES. +2 PITTING EDEMA TO BOTH HANDS, FEET AND ANKLES. SCDS TO BLE. ABD SOFT WITH HYPOACTIVE BOWEL SOUNDS. FLEXISEAL IN PLACE WITH SCANT LIQUID BROWN BM IN TUBING. CHEN CATHETER DRAINING CLEAR YELLOW URINE. TURNED FOR COMFORT TO HER LEFT SIDE. 2 INTACT SMALL BLISTERS TO THE RIGHT INNER THIGH. SACRAL OPTIFOAM COVERING DTI TO SACRUM. RAILS UP X4 AND BED IN LOW POSITION. CONTINUE TO MONITOR.
--- NOTE | 2020-04-11 09:00 | NUR ---
FAMILY/MD RECEIVED A PHONE CALL FROM PT'S SISTER, KEVIN. AFTER VERIFYING PASSWORD, I UPDATED HER ON THE PT'S CONDITION AND ANSWERED HER QUESTIONS. KEVIN IS WANTING TO SPEAK WITH THE MD AND SHE WANTS THE PT TRANSFERRED TO [facility]. CALLED AND LEFT A MESSAGE FOR DR Elizabeth KEBEDE WITH CONTACT INFO FOR THE PT'S SISTER AND THAT SHE WANTS TO SPEAK WITH HIM REGARDING TRANSFER. SHE STATES SHE WILL BE HERE IN AN HOUR IF SHE DOESN'T HEAR FROM HER. I LET HER KNOW THAT THERE IS NO VISITING ALLOWED.
--- NOTE | 2020-04-11 09:41 | NUR ---
VANCO TROUGH DRAWN.
[2020-04-11] MEDS: FLUCONAZOLE 200MG/100ML 100 ML IV SCH (09:56)
[2020-04-11] MEDS: PANTOPRAZOLE 40 MG/10 ML VIAL INJ IV SCH (09:56)
[2020-04-11] MEDS: SODIUM CHLOR 0.9% PF (SALINE LOCK) 10ML VIAL/SYR IV SCH ×2 (09:56→22:20)
[2020-04-11] MEDS: MEMANTINE HCL 5 MG TAB PO SCH ×2 (09:57→22:19)
[2020-04-11] MEDS: GENTAMICIN SULF 0.3% OPTH(EYE) OINT 3.5GM EACHEYE SCH ×2 (09:57→22:19)
[2020-04-11] MEDS: POTASSIUM EFFERVESENT TAB 25 MEQ GT SCH (09:57)
[2020-04-11] MEDS: ENOXAPARIN SOD 40 MG/0.4 ML SYRINGE SC SCH (09:57)
--- NOTE | 2020-04-11 10:20 | NUR ---
I SPOKE TO SISTER YI [phone]. SHE SPOKE AT LENGTH WITH DR. KEBEDE AND FEELS MUCH BETTER ABOUT PT CONDITION AND IS RECONSIDERING REQUESTING TRANSFER TO [facility]. WE DISCUSSED PURPOSE OF HAVING TRACH AND PEG FOR LTAC PLACEMENT; SHE HAS REQUESTED WE TRY TO PLACE HER AT [place] IN [place]. YI WAS GIVEN PERMISSION FOR 1 FAMILY MEMBER, EITHER DAUGHTER YAZMIN OR SON CATHY, TO VISIT ONE TIME ONLY FOR 20 MIN. YI IS FAMILY SPOKESPERSON SINCE DAUGHTER IS DEVELOPMENTALLY DELAYED.
--- NOTE | 2020-04-11 11:00 | NUR ---
PER PT'S SISTER, YI: THE ACCEPTING MD AT [facility] IS DR PALENCIA AND THE NUMBER FOR THE TRANSFER CENTER AT [facility] IS [phone]
--- NOTE | 2020-04-11 12:46 | NUR ---
Notified by covering nurse, Gabrielle, of family request to transfer pt to [facility]. Contacted [place] on-call director of casework, Kiana, regarding request and authorization for transfer. Per Kiana, [facility] is a HLOC and currently pt is trached/pegged and pending possible transfer to an LTAC. Kiana states she is unable to authorize transfer for family request and no HLOC need. States this will need to be discussed with Group Equipment Service Engineer on Monday. Additionally, no transfer order written. Unable to proceed without order or authorization from [facility]. Contacted [facility] regarding bed availability and spoke with transfer nurse Jossie. Per Jossie she has not heard of the provider( Dr. Casper) that the family and nurse stated had accepted pt. Additionally, Jossie stated that because its a family request and the pt is not needing a HLOC, they are unable to accept pt. Will notify nurse of the above.
--- NOTE | 2020-04-11 15:00 | NUR ---
FAMILY REQUESTING THAT PT GO TO [facility] IN [place] WHEN DISCHARGED.
--- NOTE | 2020-04-11 15:00 | NUR ---
PT'S DAUGHTER IN FOR A BRIEF VISIT AUTHORIZED BY PARKING METER COLLECTOR.
--- NOTE | 2020-04-11 16:19 | NUR ---
Nutrition Followup Note Wt: 83.1 kg Pt`s intubated through trach, awake when rounded this am. Pt is currently NPO on EN support with Osmolite @ 50 ml/hr providing 1440 kcals and 65 gm proteins. Pt with adequate EN support. Per RN pt received a PEG tube on 04/04, most likely d/t pt is with ALS. Est Energy needs BW 49 [id number] kcals (25-30 kcal/kgBW), Est Protein needs: 49-59 gms/day (1.0-1.2 gm/kgBW). Will continue to monitor and reassess prn Labs: CA 7.1 L, GLU 113 H, Ca 7.1 L BM: Pt with 1 BM recorded on 04/11 per RN note Skin: BS 13 mod risk, full details in manager critical care unit note PES: Altered nutrition related lab values r.t current chronic medical condition aeb elev BUN Inadequate PO intake r.t current chronic medical condition aeb pt`s with dysphagia Comments: Will continue to monitor NPO status, EN tolerance, skin status, pertinent labs and weight trends. Will f/u in 2-3 days. 1) Advance diet as medically feasible. 2) continue current plan of care
[2020-04-11] MEDS: fentaNYL Drip 2500mCg/250mlNS 250 ML IV SCH (16:20)
--- NOTE | 2020-04-11 16:20 | NUR ---
TEMMP OF 100.2 AND APPLIED ICE PACKS UNDER BOTH ARMS
[2020-04-11] MEDS: MIDAZOLAM DRIP 50 mg/50mL 50 ML IV SCH (16:40)
[2020-04-11] MEDS: NOREPINEPHRINE 8 MG/250ML KIT 250 ML IV SCH (16:50)
--- NOTE | 2020-04-11 17:30 | NUR ---
ORAL TEMP OF 100.7 AND ADMINISTERED TYLENOL PER MD ORDER.
[2020-04-11] MEDS: ACETAMINOPHEN 650 mg PER 20 mL UD GT PRN (19:03)
--- NOTE | 2020-04-11 19:30 | NUR ---
OPENING NOTE RECEIVED REPORT FROM DAY SHIFT RN DEWAYNE. PT IS VENTED VIA TRACH, EYES OPEN, EASILY ARROUSABLE. PT ABLE TO FOLLOW SIMPLE COMMANDS. TEMPERATURE SLIGHTLY ELEVATED AT 99.6, COOLING MEASURES IN PLACE. PT ORIENTED TO STAFF AND POC. BED IS LOCKED AT LOWEST POSITION, SIDE RAILS ARE UP. WILL CONTINUE TO MONITOR.
--- NOTE | 2020-04-11 19:30 | NUR ---
REPORT REPORT GIVEN TO NIGHT RNS. BENSON. Addendum: 04/11/20 at 1936 by Gabrielle Fagan RN ORAL TEMP OF 100.0
--- NOTE | 2020-04-11 20:50 | NUR ---
FAMILY ON THE PHONE SISTER KEVIN ON THE PHONE. PW VERIFIED. DISCUSSED PT STATUS AND POC. ALL QUESTIONS AND CONCERNS ADDRESSED. FAMILY TRANSFERRED TO PORTABLE PHONE TO SPEAK TO PATIENT PER REQUEST. WILL CONTINUE TO MONITOR.
[2020-04-11] MEDS: VANCOMYCIN 1GM/250ML 250 ML IV SCH (22:19)
[2020-04-12] VITALS (90 sets, daily range): BP systolic 80–136; BP diastolic 47–80
[2020-04-12] MEDS: ACCU-CHEK COMFORT CURVE STRIP VI SCH ×4 (00:55→18:30)
[2020-04-12 04:25] LABS: Basophils # (auto) 0 10 ^3/uL (0-0.2); Basophils % (auto) 0.1 % (0.0-2.0); Eosinophils # (auto) 0.2 10 ^3/uL (0-0.8); Eosinophils % (auto) 0.8 % (0.0-7.0); Hematocrit 32.2 % (36.0-46.0); Hemoglobin 10.9 g/dL (12.2-16.2); Lymphocytes # (auto) 1.5 10 ^3/uL (0.4-5.4); Lymphocytes % (auto) 7.3 % (10.0-50.0); Mean Corpuscular Hemoglobin 30.6 pg (28.0-32.0); Mean Corpuscular Hgb Conc. 33.8 g/dL (32.0-36.0); Mean Corpuscular Volume 90.4 fL (80.0-100.0); Monocytes # (auto) 1.5 10 ^3/uL (0-1.3); Monocytes % (auto) 7.3 % (0.0-12.0); Neutrophils # (auto) 17.3 10 ^3/uL (1.6-8.6); Neutrophils % (auto) 84.5 % (37.0-80.0); Platelet Count (auto) 257 10^3/uL (140-450); Red Blood Cells 3.57 10^6/uL (4.0-5.20); Red Cell Distribution Width 14.5 % (11.8-14.3); White Blood Cell 20.5 10^3/uL (4.4-10.8)
[2020-04-12 04:42] LABS: Calcium 7.4 mg/dL (8.5-10.1); Potassium 3.3 mmol/L (3.5-5.1)
[2020-04-12 04:45] LABS: BUN/Creatinine Ratio 45.7
[2020-04-12] MEDS: CEFEPIME 1 GM in SODIUM CHL 0.9% 50 ML IV SCH ×3 (05:39→20:47)
[2020-04-12] MEDS: BACLOFEN 10 MG TAB PO SCH ×3 (05:40→22:22)
--- NOTE | 2020-04-12 05:40 | NUR ---
Respiratory note: PT RECEIVED ON ABOVE STATED SETTINGS ON VENT #V13,PLUGGED INTO A RED OUTLET AND PROPER O2 SOURCE. PT IS TRACHED WITH A 7.[address]SPARE TRACH AT BEDSIDE. AMBU BAG/MASK AT BEDSIDE. NO SKIN BREAKDOWN NOTED AT TRACH SITE.ALARMS ARE PROPERLY SET, FUNCTIONING, AND AUDIBLE. BILATERAL BS ARE CLEAR, SUCTION NOT INDICATED. SKIN IS WARM AND DRY TO THE TOUCH WITH EDEMA NOTED BILATERALLY ON ALL APPENDICULARS.RN AT BEDSIDE. POC:MAINTAIN ADEQUATE OXYGENATION.VENTILATION,AND PULMONARY HYGIENE.
[2020-04-12] MEDS: InsuLIN REG 1unit/0.01ml Soln (100units/ml) SC SCH ×4 (05:57→18:33)
--- NOTE | 2020-04-12 07:15 | NUR ---
REPORT REPORT RECEIVED FROM NIGHT RNJJ. BEDSIDE CHECK DONE. PT ON VENTILATOR AND NODS HEAD TO YES AND NO QUESTIONS. DENIES PAIN. CONTINUE TO MONITOR.
--- NOTE | 2020-04-12 08:10 | NUR ---
ASSESSMENT PT AWAKE AND ALERT, ON THE VENTILATOR WITH NO SEDATION. FOLLOWS SIMPLE COMMANDS LIKE OPENING HER MOUTH FOR ORAL CARE. ON THE VENTILATOR TO BIVONA TRACH #7.5 . VENTILATOR SETTINGS OF : PRESSURE CONTROL MODE WITH PRESSURE OF 30, RATE 18, 40% , I-TIME 1.1 AND PEEP OF 7. LUNGS WITH INSP/EXP RHONCHI THROUGHOUT. SUCTIONED VIA TRACH FOR SMALL AMOUNT OF THIN CLEAR FLUID. ORAL CARE PROVIDED. TELE ST 102. PALPABLE PULSES TO ALL EXTREMITIES. SCDS TO BLE. +2 PITTING EDEMA NOTED TO BOTH ANKLES AND FEET AND BOTH HANDS . ABD SOFT WITH + BOWEL SOUNDS. PEG TUBE TO LEFT UPPER ABD, SITE CLEAR. PEG TUBE WITH NO RESIDUAL AND OSMOLITE FEEDING AT 10 ML/HR AND INCREASED TO 20 ML/HR. PT WITH LIQUID BROWN BM AND FLEXISEAL IN PLACE. S;IGHT LEAKAGE AROUND TUBE AND KRYSTLE CARE PROVIDED AND Z GUARD CREAM APPLIED. PT WITH 2 SMALL INTACT BLISTERS NOTED TO BOTH INNER THIGHS, DEAN OF GIRLS. CHEN CATHETER DRAINING CLEAR YELLOW URINE. TURNED FOR COMFORT TO HER RIGHT SIDE. OPTIFOAM TO SACRUM. SACRUM WITH DTI AND ALSO 2 SMALL OPEN AREAS TO THE INNER LEFT BUTTOCK. RAILS UP X4 AND BED IN LOW POSITION FOR PT SAFETY. CONTINUE TO MONITOR.
[2020-04-12] MEDS: ACETAMINOPHEN 650 mg PER 20 mL UD GT PRN ×2 (08:36→20:45)
--- NOTE | 2020-04-12 08:36 | NUR ---
ADMINISTERED TYLENOL LIQUID VIA PEG TUBE FOR ORAL TEMP OF 100.6 . CONTINUE TO MONITOR.
[2020-04-12] MEDS: POTASSIUM EFFERVESENT TAB 25 MEQ GT SCH (10:29)
[2020-04-12] MEDS: MEMANTINE HCL 5 MG TAB PO SCH ×2 (10:29→22:22)
[2020-04-12] MEDS: ENOXAPARIN SOD 40 MG/0.4 ML SYRINGE SC SCH (10:29)
[2020-04-12] MEDS: PANTOPRAZOLE 40 MG/10 ML VIAL INJ IV SCH (10:29)
[2020-04-12] MEDS: FLUCONAZOLE 200MG/100ML 100 ML IV SCH (10:29)
[2020-04-12] MEDS: GENTAMICIN SULF 0.3% OPTH(EYE) OINT 3.5GM EACHEYE SCH ×2 (10:30→22:22)
[2020-04-12] MEDS: SODIUM CHLOR 0.9% PF (SALINE LOCK) 10ML VIAL/SYR IV SCH ×2 (10:32→22:23)
--- NOTE | 2020-04-12 11:20 | NUR ---
FAMILY RECEIVED A PHONE CALL FROM PT'S SISTER, YI. AFTER VERIFYING THE PASSWORD, I UPDATED HER AND ANSWERED HER QUESTIONS.
[2020-04-12] MEDS ORDERED: POTASSIUM EFFERVESENT TAB 25 MEQ GT ONE (11:30)
--- NOTE | 2020-04-12 12:15 | NUR ---
PT REPOSITIONED FOR COMFORT. ACCUCHECK OF 100 WITH NO COVERAGE NEEDED. ONLY 100ML UOP SO FAR.
[2020-04-12] MEDS ORDERED: SODIUM CHLORIDE 0.9% 500 ML IV ONE (13:30)
[2020-04-12] MEDS: IPRATROPIUM BROM 0.5 MG/2.5ML INH SOL NEB PRN (13:59)
[2020-04-12] MEDS: ALBUTEROL SULF 2.5 MG/0.5ML(0.5%) NEB SOLN NEB PRN (13:59)
--- NOTE | 2020-04-12 13:59 | NUR ---
Respiratory note: ALARMS VERIFIED AND AUDIBLE. BS REVEAL WHEEZES.PRN MED NEB TX GIVEN INLINE, TOLERATED WELL. SUCTIONED WITH SCANT RETURN.DR CAMARGO AT BEDSIDE. WANTS CPAP.PLACED PT ON CPAP. WITH IN 5 MINS PT POX DROPPED TO MID 80'S AND PT STARTED LOOKING VERY UNCOMFORTABLE WITH LOW VT. PT PLACED BACK ON PCV. NO VENT CHANGES ORDERED AT THIS TIME. WILL CONTINUE TO MONITOR ORDERED.
[2020-04-12] MEDS: SODIUM CHLORIDE 0.9% 1,000 ML IV SCH (14:30)
[2020-04-12] MEDS: fentaNYL Drip 2500mCg/250mlNS 250 ML IV SCH (16:20)
[2020-04-12] MEDS: NOREPINEPHRINE 8 MG/250ML KIT 250 ML IV SCH (16:39)
[2020-04-12] MEDS: MIDAZOLAM DRIP 50 mg/50mL 50 ML IV SCH (16:39)
--- NOTE | 2020-04-12 19:30 | NUR ---
REPORT REPORT GIVEN TO CRISS HOUSTON RN.
[2020-04-12] MEDS: Osmolite 1.2 Cal One Liter GT SCH (20:45)
[2020-04-12] MEDS: MORPHINE SULF INJ 2 MG/ML SYRINGE 1ML IV PRN (20:45)
--- NOTE | 2020-04-12 21:15 | NUR ---
FAMILY RECEIVED PHONE CALL FROM PATIENT'S SISTER YI. PASSWORD CONFIRMED. UPDATED ON PATIENT'S STATUS.
[2020-04-12] MEDS: VANCOMYCIN 1GM/250ML 250 ML IV SCH (22:22)
[2020-04-13] VITALS (68 sets, daily range): BP systolic 87–141; BP diastolic 43–89
[2020-04-13] MEDS: ACCU-CHEK COMFORT CURVE STRIP VI SCH ×4 (00:10→17:28)
[2020-04-13] MEDS: InsuLIN REG 1unit/0.01ml Soln (100units/ml) SC SCH ×4 (00:11→17:28)
[2020-04-13] MEDS: CEFEPIME 1 GM in SODIUM CHL 0.9% 50 ML IV SCH ×3 (05:02→21:00)
[2020-04-13] MEDS: BACLOFEN 10 MG TAB PO SCH ×3 (05:35→22:00)
[2020-04-13 05:52] LABS: Basophils # (auto) 0 10 ^3/uL (0-0.2); Basophils % (auto) 0.2 % (0.0-2.0); Eosinophils # (auto) 0.1 10 ^3/uL (0-0.8); Eosinophils % (auto) 0.6 % (0.0-7.0); Hematocrit 30.2 % (36.0-46.0); Hemoglobin 9.8 g/dL (12.2-16.2); Lymphocytes # (auto) 1.3 10 ^3/uL (0.4-5.4); Lymphocytes % (auto) 6.9 % (10.0-50.0); Mean Corpuscular Hemoglobin 29.6 pg (28.0-32.0); Mean Corpuscular Hgb Conc. 32.5 g/dL (32.0-36.0); Monocytes # (auto) 0.8 10 ^3/uL (0-1.3); Monocytes % (auto) 4.3 % (0.0-12.0); Neutrophils # (auto) 17.2 10 ^3/uL (1.6-8.6); Platelet Count (auto) 248 10^3/uL (140-450); Red Blood Cells 3.32 10^6/uL (4.0-5.20); Red Cell Distribution Width 14.2 % (11.8-14.3); White Blood Cell 19.6 10^3/uL (4.4-10.8)
[2020-04-13] MEDS: SODIUM CHLORIDE 0.9% 1,000 ML IV SCH ×2 (06:26→22:50)
--- NOTE | 2020-04-13 08:16 | NUR ---
Respiratory note: LM WITH DR CAMARGO IN REGARDS TO PT CRITICAL ABG VALUE OF CO2 24.9. RN AWARE. WILL CONTINUE TO MONITOR PT.
--- NOTE | 2020-04-13 08:30 | NUR ---
OPEN RECEIVED REPORT FROM NIGHT RN. ASSUMED CARE OF ICU PATIENT, FULL CODE STATUS. PATIENT ON VENT WITH TRACH. CURRENT FIO2 AT 35%. PATIENT HAS PEG TUBE WITH TUBE FEEDINGS, NO RESIDUALS AT THIS TIME. FLEXISEAL IN PLACE. CHEN TO GRAVITY. WILL CONTINUE TO TURN PATIENT Q2HRS AND PRN. OFF LOADING PRESSURE AREAS WITH PILLOWS. NS AT 60 ML/HR. WILL CONTINUE TO MONITOR. SEE [facility] MANA[facility] AND IV FLOW SHEET FOR FURTHER PATIENT INFORMATION. CONTINUE CARE.
--- NOTE | 2020-04-13 09:09 | NUR ---
FAMILY CALLED: UPDATE UPDATED PATIENT'S SISTER ON PT'S STATUS AND POC FOR TODAY. CONTINUE CARE.
--- NOTE | 2020-04-13 09:17 | NUR ---
DR. JOHNSON CALLED: ORDERS MD UPDATED ON PT'S CURRENT STATUS, ABG RESULTS AND POC FOR TODAY. ORDERS GIVEN TO INCREASE FIO2 TO 40 %. R.T NOTIFIED AND CHANGES MADE. WILL CONTINUE TO MONITOR.
[2020-04-13] MEDS: GENTAMICIN SULF 0.3% OPTH(EYE) OINT 3.5GM EACHEYE SCH ×2 (09:23→22:00)
[2020-04-13] MEDS: FLUCONAZOLE 200MG/100ML 100 ML IV SCH ×2 (09:50→11:15)
[2020-04-13] MEDS: MEMANTINE HCL 5 MG TAB PO SCH ×2 (09:50→22:00)
[2020-04-13] MEDS: POTASSIUM EFFERVESENT TAB 25 MEQ GT SCH (09:50)
[2020-04-13] MEDS: ENOXAPARIN SOD 40 MG/0.4 ML SYRINGE SC SCH (09:50)
[2020-04-13] MEDS: SODIUM CHLOR 0.9% PF (SALINE LOCK) 10ML VIAL/SYR IV SCH ×2 (09:50→22:00)
[2020-04-13] MEDS: PANTOPRAZOLE 40 MG/10 ML VIAL INJ IV SCH (09:50)
--- NOTE | 2020-04-13 12:19 | NUR ---
Nutrition Followup Note Wt: 84.9 kg Pt`s intubated through trach, awake when rounded this am. Pt is awaiting transfer to a long-term acute care facility. Pt is currently NPO on EN support with Osmolite 1.2, pt received 550 ml 04/13 so far per RN note. Pt with adequate EN support. Per RN pt received a PEG tube on 04/04, most likely d/t pt is with ALS. Est Energy needs BW 49 [id number] kcals (25-30 kcal/kgBW), Est Protein needs: 49-59 gms/day (1.0-1.2 gm/kgBW). Will continue to monitor and reassess prn Labs: Creat 0.42L, GLUC 115H, Alb 2.7L, Ca 7.4L BM: Pt with 1 BM recorded on 04/11 per RN note Skin: BS 14 mod risk, full details in lawn care technician note PES: Altered nutrition related lab values r.t current chronic medical condition aeb elev BUN Inadequate PO intake r.t current chronic medical condition aeb pt`s with dysphagia Comments: Will continue to monitor NPO status, EN tolerance, skin status, pertinent labs and weight trends. Will f/u in 2-3 days. 1) Advance diet as medically feasible. 2) continue current plan of care
--- NOTE | 2020-04-13 13:10 | NUR ---
DR. Liliana KEBEDE AT BEDSIDE: ORDERS MD UPDATED ON PT'S CURRENT STATUS AND POC FOR TODAY. WILL CARRY OUT ANY ORDERS GIVEN. CONTINUE CARE.
[2020-04-13] MEDS: fentaNYL Drip 2500mCg/250mlNS 250 ML IV SCH (13:36)
[2020-04-13] MEDS: NOREPINEPHRINE 8 MG/250ML KIT 250 ML IV SCH (13:36)
[2020-04-13] MEDS: MIDAZOLAM DRIP 50 mg/50mL 50 ML IV SCH (13:36)
--- NOTE | 2020-04-13 14:30 | NUR ---
Called [facility] and left a messages for Susy Cooper [phone] and Ana COOPER [phone] regarding the transfer to [facility] for the patient needs authorization. I have spoken with Yonatan COOPER at [phone] for [facility] regarding the patients transfer to [facility]. and stated they were okay with the transfer.
[2020-04-13] MEDS: ACETAMINOPHEN 650 mg PER 20 mL UD GT PRN (16:13)
--- NOTE | 2020-04-13 16:15 | NUR ---
COOLING MEASURES STARTED CURRENT TEMP IS 100.5 , ORALLY. BLANKETS REMOVED FROM PATIENT. PATIENT GIVEN TYLENOL 500 MG VIA G-TUBE PER MD ORDERS, AT THIS TIME. CONTINUE CARE. COOL TOWEL ALSO PLACED ON PATIENT'S FOREHEAD.
[2020-04-13] MEDS: ALBUTEROL SULF 2.5 MG/0.5ML(0.5%) NEB SOLN NEB PRN (18:10)
[2020-04-13] MEDS: IPRATROPIUM BROM 0.5 MG/2.5ML INH SOL NEB PRN (18:10)
[2020-04-13] MEDS: VANCOMYCIN 1GM/250ML 250 ML IV SCH (22:00)
--- NOTE | 2020-04-13 22:40 | NUR ---
Respiratory note: VENT CHANGE PER RR 14, PEEP 8
[2020-04-14] VITALS (56 sets, daily range): BP systolic 109–152; BP diastolic 45–91
--- NOTE | 2020-04-14 02:00 | NUR ---
MORNING CARE / PICC LINE DRESSING CHANGED PERFORMED MORNING CARE WITH CHG WIPES AND WASH CLOTHS TO THE FACE. PARTIAL LINEN CHANGE AND GOWN CHANGED. ORAL AND CHEN CARE PERFORMED. REPOSITIONED FOR COMFORT. SKIN REASSESSED AT THIS TIME. PICC LINE DRESSING CHANGED. BED IN LOWEST POSITION, SIDE RAILS UP X2. CALL LIGHT WITHIN REACH. WILL CONTINUE TO MONITOR. Addendum: 04/15/20 at 0701 by DOUGLAS EMERY RN CORRECT DATE 04/15/20
[2020-04-14 04:51] LABS: Eosinophils # (auto) 0.2 10 ^3/uL (0-0.8); Mean Corpuscular Hemoglobin 31.1 pg (28.0-32.0)
[2020-04-14 04:53] LABS: Basophils # (auto) 0.3 10 ^3/uL (0-0.2); Basophils % (auto) 1.2 % (0.0-2.0); Eosinophils % (auto) 0.8 % (0.0-7.0); Hematocrit 24.1 % (36.0-46.0); Lymphocytes # (auto) 1.2 10 ^3/uL (0.4-5.4); Lymphocytes % (auto) 5.6 % (10.0-50.0); Mean Corpuscular Hgb Conc. 33.2 g/dL (32.0-36.0); Mean Corpuscular Volume 93.5 fL (80.0-100.0); Monocytes # (auto) 0.8 10 ^3/uL (0-1.3); Monocytes % (auto) 3.7 % (0.0-12.0); Neutrophils # (auto) 18.3 10 ^3/uL (1.6-8.6); Neutrophils % (auto) 88.7 % (37.0-80.0); Nucleated Red Blood Cells % 0.1 %; Platelet Count (auto) 188 10^3/uL (140-450); Red Blood Cells 2.57 10^6/uL (4.0-5.20); Red Cell Distribution Width 14.7 % (11.8-14.3); White Blood Cell 20.6 10^3/uL (4.4-10.8)
[2020-04-14] MEDS: CEFEPIME 1 GM in SODIUM CHL 0.9% 50 ML IV SCH ×3 (05:00→20:33)
[2020-04-14 05:12] LABS: BUN/Creatinine Ratio 53.3
[2020-04-14 05:16] LABS: Calcium 5.7 mg/dL (8.5-10.1); Potassium 2.9 mmol/L (3.5-5.1)
[2020-04-14] MEDS: ACCU-CHEK COMFORT CURVE STRIP VI SCH ×5 (06:00→23:30)
[2020-04-14] MEDS: BACLOFEN 10 MG TAB PO SCH ×3 (06:00→22:36)
[2020-04-14] MEDS: InsuLIN REG 1unit/0.01ml Soln (100units/ml) SC SCH ×5 (06:00→23:30)
--- NOTE | 2020-04-14 07:45 | NUR ---
CALL PLACED TO DR SARMIENTO RE: K+2.9 - WILL ADMINISTER KLOR-CON BEFORE SCHEDULED DOSE.
[2020-04-14] MEDS: SODIUM CHLORIDE 0.9% 1,000 ML IV SCH (07:59)
[2020-04-14] MEDS: PANTOPRAZOLE 40 MG/10 ML VIAL INJ IV SCH (08:34)
[2020-04-14] MEDS: POTASSIUM EFFERVESENT TAB 25 MEQ GT SCH (08:34)
[2020-04-14] MEDS: MEMANTINE HCL 5 MG TAB PO SCH ×2 (08:35→22:36)
[2020-04-14] MEDS: ENOXAPARIN SOD 40 MG/0.4 ML SYRINGE SC SCH (08:37)
[2020-04-14] MEDS: SODIUM CHLOR 0.9% PF (SALINE LOCK) 10ML VIAL/SYR IV SCH ×2 (08:37→22:36)
[2020-04-14] MEDS: IPRATROPIUM BROM 0.5 MG/2.5ML INH SOL NEB PRN (08:38)
[2020-04-14] MEDS: ALBUTEROL SULF 2.5 MG/0.5ML(0.5%) NEB SOLN NEB PRN (08:38)
[2020-04-14] MEDS: GENTAMICIN SULF 0.3% OPTH(EYE) OINT 3.5GM EACHEYE SCH ×2 (08:38→22:35)
[2020-04-14] MEDS: FLUCONAZOLE 200MG/100ML 100 ML IV SCH ×2 (08:39→13:03)
--- NOTE | 2020-04-14 08:45 | NUR ---
PATIENT C/O SOB - SAO2 89%, HR 130 - RT NOTIFIED AND INCREASED FIO2 TO 50% AND GAVE PRN BREATHING TREATMENT - PATIENT STATES FEELS MUCH BETTER AFTER INTERVENTIONS. SAO2 95%, HR 102 - WILL CONTINUE TO MONITOR.
--- NOTE | 2020-04-14 09:45 | NUR ---
DR JOHNSON VISITS AND EXAMINES PATIENT - ORDERS RECEIVED.
--- NOTE | 2020-04-14 10:15 | NUR ---
Per Susy COOPER at [facility] [phone], patient has to stay in network, can't be transferred to [facility] in [place] as family requested.
--- NOTE | 2020-04-14 10:22 | NUR ---
PATIENT'S SISTER YI PHONES - UPDATED ON PATIENT CONDITION.
--- NOTE | 2020-04-14 10:26 | NUR ---
Spoke with Elda COOPER for [facility] [phone] and stated patient can go to [facility] in [place] or [facility].
--- NOTE | 2020-04-14 10:30 | NUR ---
Spoke with Wilda GATICA coordinator at [facility], explain that per the [place] the patient can go to [facility] in [place] or [facility], stated she would start looking for a bed.
--- NOTE | 2020-04-14 10:46 | NUR ---
Faxed Face Sheet to Susy COOPER from [facility] [phone].
[2020-04-14 11:46] LABS: Calcium 7.4 mg/dL (8.5-10.1); Potassium 4.1 mmol/L (3.5-5.1)
[2020-04-14] MEDS: ALBUTEROL SULF 2.5 MG/0.5ML(0.5%) NEB SOLN NEB SCH ×3 (14:37→22:29)
[2020-04-14] MEDS: IPRATROPIUM BROM 0.5 MG/2.5ML INH SOL NEB SCH ×3 (14:37→22:28)
[2020-04-14] MEDS: fentaNYL Drip 2500mCg/250mlNS 250 ML IV SCH (16:20)
[2020-04-14] MEDS: NOREPINEPHRINE 8 MG/250ML KIT 250 ML IV SCH (16:27)
[2020-04-14] MEDS: MIDAZOLAM DRIP 50 mg/50mL 50 ML IV SCH (16:27)
--- NOTE | 2020-04-14 19:30 | NUR ---
OPENING SHIFT RECEIVED REPORT FROM DAY SHIFT RN. ASSUMED CARE OF PATIENT. PATIENT IN BED VENTED VIA TRACH, WATCHING TV WITH NO SIGNS OR SYMPTOMS OF SOB, PAIN OR DISTRESS. RIGHT UPPER ARM PICC TLC - CLEAN/DRY/INTACT. CHEN PATENT AND HUNG TO GRAVITY. REPOSITIONED FOR COMFORT. PATIENT TOLERATING TUBE FEEDING VIA LEFT UPPER QUADRANT PEG TUBE. BED IN LOWEST POSITION, SIDE RAILS UP X2, CALL LIGHT WITHIN REACH. WILL CONTINUE TO MONITOR.
--- NOTE | 2020-04-14 20:05 | NUR ---
TEMPERATURE - 102.3 DEGREES FAHRENHEIT COOLING MEASURES INITIATED. TYLENOL GIVEN PER EMAR. WILL CONTINUE TO MONITOR.
[2020-04-14] MEDS: ACETAMINOPHEN 650 mg PER 20 mL UD GT PRN (20:12)
--- NOTE | 2020-04-14 21:30 | NUR ---
TEMPERATURE - 100.8 DEGREES FAHRENHEIT
--- NOTE | 2020-04-14 22:00 | NUR ---
SPOKE WITH FAMILY PASSWORD VERIFIED. UPDATED SISTER ON PATIENT STATUS AND PLAN OF CARE. ALL QUESTIONS AND CONCERNS ANSWERED AND ADDRESSED.
[2020-04-14] MEDS: VANCOMYCIN 1GM/250ML 250 ML IV SCH (22:30)
[2020-04-15] VITALS (57 sets, daily range): BP systolic 85–137; BP diastolic 43–101
[2020-04-15 04:29] LABS: Basophils # (auto) 0 10 ^3/uL (0-0.2); Basophils % (auto) 0.2 % (0.0-2.0); Eosinophils # (auto) 0.3 10 ^3/uL (0-0.8); Eosinophils % (auto) 1.3 % (0.0-7.0); Hematocrit 27.6 % (36.0-46.0); Hemoglobin 9.1 g/dL (12.2-16.2); Lymphocytes # (auto) 1.5 10 ^3/uL (0.4-5.4); Lymphocytes % (auto) 6.9 % (10.0-50.0); Mean Corpuscular Hgb Conc. 32.9 g/dL (32.0-36.0); Mean Corpuscular Volume 91.2 fL (80.0-100.0); Monocytes # (auto) 0.8 10 ^3/uL (0-1.3); Monocytes % (auto) 3.8 % (0.0-12.0); Neutrophils # (auto) 18.7 10 ^3/uL (1.6-8.6); Neutrophils % (auto) 87.8 % (37.0-80.0); Nucleated Red Blood Cells % 0.1 %; Platelet Count (auto) 205 10^3/uL (140-450); Red Blood Cells 3.03 10^6/uL (4.0-5.20); Red Cell Distribution Width 14.5 % (11.8-14.3); White Blood Cell 21.3 10^3/uL (4.4-10.8)
[2020-04-15 04:44] LABS: Calcium 7.2 mg/dL (8.5-10.1); Magnesium 1.8 mg/dL (1.6-2.6); Potassium 3.5 mmol/L (3.5-5.1)
[2020-04-15] MEDS: CEFEPIME 1 GM in SODIUM CHL 0.9% 50 ML IV SCH (05:30)
[2020-04-15] MEDS: InsuLIN REG 1unit/0.01ml Soln (100units/ml) SC SCH ×3 (06:00→18:45)
[2020-04-15] MEDS: ALBUTEROL SULF 2.5 MG/0.5ML(0.5%) NEB SOLN NEB SCH ×5 (06:03→22:04)
[2020-04-15] MEDS: IPRATROPIUM BROM 0.5 MG/2.5ML INH SOL NEB SCH ×5 (06:03→22:04)
[2020-04-15] MEDS: ACCU-CHEK COMFORT CURVE STRIP VI SCH ×3 (06:15→18:45)
[2020-04-15] MEDS: BACLOFEN 10 MG TAB PO SCH ×3 (06:15→22:00)
--- NOTE | 2020-04-15 07:24 | NUR ---
END OF SHIFT REPORT GIVEN TO DAY SHIFT RN. CARE ENDORSED.
[2020-04-15] MEDS: SODIUM CHLORIDE 0.9% 1,000 ML IV SCH (08:10)
--- NOTE | 2020-04-15 08:15 | NUR ---
DR MENDOSA VISITS AND EXAMINES PATIENT - NO NEW ORDERS RECEIVED.
--- NOTE | 2020-04-15 09:15 | NUR ---
DR JOHNSON VISITS AND EXAMINES PATIENT - NO NEW ORDERS RECEIVED.
--- NOTE | 2020-04-15 10:15 | NUR ---
WOUND CARE NOTE: IN TO SEE PATIENT AT THIS TIME FOR SKIN INTEGRITY MONITORING. PATIENT CONTINUES TO BE INTUBATED, SEDATED. CURRENT TRISH SCORE IS 10. PATIENT TURNED TO SIDE LYING POSITION TO VISUALIZE SACRAL DTI WITH BLISTERS. BLISTER HAS NOW OPEN, MEASURING 2.2 X 2 CM. WOUND IS PARTIAL THICKNESS, PINK WOUND BED, DARK RED PERIWOUND. SCANT SEROUS DRAINAGE NOTED. APPLIED ZGUARD, OPTIFOAM GENTLE SACRAL DRESSING. PATIENT REPOSITIONED ONTO RIGHT SIDE, REDISTRIBUTING PRESSURE POINTS USING PILLOWS/WEDGES. PATIENT CONTINUES TO REST ON ICU LOW AIRLOSS BED. SKIN/WOUND CARE PLAN UPDATED. RECOMMEND: BID APPLICATION WITH ZGUARD, TO OPEN BLISTER SACRUM, CONTINUATION WITH ALL OTHER WOUND CARE ORDERS PREVIOUSLY PRESCRIBED BY MD. WOUND CARE TEAM WILL CONTINUE TO MONITOR. Addendum: 04/15/20 at 1405 by Kianna Ramos RN Amended: Links added.
[2020-04-15] MEDS: FLUCONAZOLE 200MG/100ML 100 ML IV SCH ×2 (10:39→12:18)
[2020-04-15] MEDS: PANTOPRAZOLE 40 MG/10 ML VIAL INJ IV SCH (10:40)
[2020-04-15] MEDS: MEMANTINE HCL 5 MG TAB PO SCH ×2 (10:40→22:00)
[2020-04-15] MEDS: SODIUM CHLOR 0.9% PF (SALINE LOCK) 10ML VIAL/SYR IV SCH ×2 (10:40→22:00)
[2020-04-15] MEDS: ENOXAPARIN SOD 40 MG/0.4 ML SYRINGE SC SCH (10:40)
[2020-04-15] MEDS: POTASSIUM EFFERVESENT TAB 25 MEQ GT SCH (10:40)
[2020-04-15] MEDS: GENTAMICIN SULF 0.3% OPTH(EYE) OINT 3.5GM EACHEYE SCH (10:57)
--- NOTE | 2020-04-15 11:08 | NUR ---
Spoke with Wilda GATICA coordinator for [facility] and explain that the daughter left a message and stated it was okay for her mom to go to [facility] in [place]. verbalized she understood and was working on getting her a bed.
--- NOTE | 2020-04-15 11:55 | NUR ---
Nutrition Followup Note Wt: 85.2 kg Pt`s extubated, sleeping when rounded this am. Pt is awaiting transfer to a long-term acute care facility. Pt is currently NPO on EN support with Osmolite 1.2 @ 50 ml/hr per RN note. Pt with adequate EN support. Per RN pt received a PEG tube on 04/04, most likely d/t pt is with ALS. Est Energy needs BW 49 [id number] kcals (25-30 kcal/kgBW), Est Protein needs: 49-59 gms/day (1.0-1.2 gm/kgBW). Will continue to monitor and reassess prn Labs: GLUC 109H, Alb 2.7L, Ca 7.2L BM: Pt with 1 BM recorded on 04/11 per RN note Skin: BS 14 mod risk, full details in health care facilities inspector note PES: Altered nutrition related lab values r.t current chronic medical condition aeb elev BUN Inadequate PO intake r.t current chronic medical condition aeb pt`s with dysphagia Comments: Will continue to monitor NPO status, EN tolerance, skin status, pertinent labs and weight trends. Will f/u in 2-3 days. 1) Advance diet as medically feasible. 2) continue current plan of care
--- NOTE | 2020-04-15 12:15 | NUR ---
DR SARMIENTO VISITS AND EXAMINES PATIENT - ORDERS RECEIVED.
[2020-04-15] MEDS: MEROPENEM 1GM IVPB 100 ML IV SCH ×2 (14:22→23:00)
[2020-04-15] MEDS: fentaNYL Drip 2500mCg/250mlNS 250 ML IV SCH (16:20)
[2020-04-15] MEDS: MIDAZOLAM DRIP 50 mg/50mL 50 ML IV SCH (16:40)
[2020-04-15] MEDS: NOREPINEPHRINE 8 MG/250ML KIT 250 ML IV SCH (16:50)
--- NOTE | 2020-04-15 19:24 | NUR ---
Respiratory note: PT PLACED ON HEATED WIRE CIRCUIT, RT EDY AT BEDSIDE TO ASSIST. PT BAGGED WITH AMBU BAG WITH PEEP VALVE SET TO PROPER LEVEL, AMBU BAG CONNECTED TO O2 SOURCE. VENT#13 SST'D AND PASSED WITH HEATED WIRE CIRCUIT. VENT PLUGGED INTO RED OUTLET, ALARMS SET AND FUNCTIONING. CANDIE HEATER SET TO PROPER TEMP AND HUMIDIFICATION SETTINGS. VENT SETTINGS CONFIRMED, PT PLACED BACK ON VENT WITH PREVIOUS SETTINGS. PT TOLERATED WELL, UNEVENTFUL.
[2020-04-15] MEDS: VANCOMYCIN 1GM/250ML 250 ML IV SCH (22:00)
[2020-04-16] VITALS (75 sets, daily range): BP systolic 89–144; BP diastolic 43–87
[2020-04-16] MEDS: MORPHINE SULF INJ 2 MG/ML SYRINGE 1ML IV PRN ×3 (00:18→15:04)
[2020-04-16 05:30] LABS: Eosinophils # (auto) 0.2 10 ^3/uL (0-0.8); Hemoglobin 8.2 g/dL (12.2-16.2); Lymphocytes # (auto) 1.2 10 ^3/uL (0.4-5.4); Lymphocytes % (auto) 5.7 % (10.0-50.0); Monocytes # (auto) 1.1 10 ^3/uL (0-1.3)
[2020-04-16 05:33] LABS: Basophils # (auto) 0 10 ^3/uL (0-0.2); Basophils % (auto) 0.2 % (0.0-2.0); Eosinophils % (auto) 0.9 % (0.0-7.0); Hematocrit 24.4 % (36.0-46.0); Mean Corpuscular Hemoglobin 31.1 pg (28.0-32.0); Mean Corpuscular Hgb Conc. 33.7 g/dL (32.0-36.0); Mean Corpuscular Volume 92.1 fL (80.0-100.0); Monocytes % (auto) 5.5 % (0.0-12.0); Neutrophils # (auto) 17.8 10 ^3/uL (1.6-8.6); Neutrophils % (auto) 87.7 % (37.0-80.0); Platelet Count (auto) 167 10^3/uL (140-450); Red Blood Cells 2.65 10^6/uL (4.0-5.20); Red Cell Distribution Width 14.7 % (11.8-14.3); White Blood Cell 20.3 10^3/uL (4.4-10.8)
[2020-04-16] MEDS: BACLOFEN 10 MG TAB PO SCH ×3 (05:41→22:00)
[2020-04-16] MEDS: MEROPENEM 1GM IVPB 100 ML IV SCH ×3 (05:42→22:00)
[2020-04-16 05:47] LABS: Calcium 7.1 mg/dL (8.5-10.1); Potassium 3.8 mmol/L (3.5-5.1)
[2020-04-16 05:50] LABS: BUN/Creatinine Ratio 58.3
[2020-04-16] MEDS: InsuLIN REG 1unit/0.01ml Soln (100units/ml) SC SCH ×4 (06:00→18:00)
[2020-04-16] MEDS: ACCU-CHEK COMFORT CURVE STRIP VI SCH ×4 (06:00→18:00)
[2020-04-16] MEDS: ALBUTEROL SULF 2.5 MG/0.5ML(0.5%) NEB SOLN NEB SCH ×5 (06:07→22:15)
[2020-04-16] MEDS: IPRATROPIUM BROM 0.5 MG/2.5ML INH SOL NEB SCH ×5 (06:07→22:15)
--- NOTE | 2020-04-16 07:30 | NUR ---
REPORT REPORT RECEIVED FROM CELSO RNAMARILIS. BEDSIDE CHECK DONE. PT ON THE VENTILATOR WITH 70 % FIO2 AND VSS. CONTINUE TO MONITOR.
--- NOTE | 2020-04-16 08:20 | NUR ---
ASSESSMENT PT AWAKE AND A/O. NON VERBAL SHE IS INTUBATED AND TRACHED, BUT ABLE TO MAKE HER NEEDS KNOWN BY RN READING PT'S LIPS. ON VENTILATOR TO TRACH, BIVONA TRACH SIZE 7.5, AND ON PRESSURE CONTROL WITH 70% FIO2, PRESSURE OF 30, RATE OF 14, I TIME OF 1.1 AND PEEP OF 8. LUNGS CLEAR THROUGHOUT WITH SMALL AMOUNT OF WHITISH YELLOW ETT SECRETIONS. TELE ST 111. PALPABLE PULSES TO ALL EXTREMITIES. SCDS AND ANTIONE BOOTS TO BLE. ABD SOFT WITH ACTIVE BOWEL SOUNDS. PEG TUBE WITH SITE BENIGN, AND OSMOLITE 1.2 INFUSING AT 50 ML/HR WITH NO RESIDUAL NOTED, CHEN CATHETER DRAINING YELLOW URINE WITH SEDIMENT NOTED. FLEXISEAL IN PLACE AND DRAINING LIQUID DARK GREEN BM. NO LEAKAGE NOTED. THREE LUMEN PICC LINE TO THE RUE, SITE BENIGN. TURNED FOR COMFORT TO HER RIGHT SIDE. SACRUM WITH SKIN TEAR NOTED AT PREVIOUS DTI SITE. OPTIFOAM DRESSING IN PLACE. RAILS UP X4 AND BED IN LOW POSITION FOR PT SAFETY. CONTINUE TO MONITOR.
[2020-04-16] MEDS ORDERED: FUROSEMIDE 40 MG/4 ML VIAL IV ONE (10:15)
[2020-04-16] MEDS: MEMANTINE HCL 5 MG TAB PO SCH ×2 (10:37→22:00)
[2020-04-16] MEDS: ENOXAPARIN SOD 40 MG/0.4 ML SYRINGE SC SCH (10:37)
[2020-04-16] MEDS: FLUCONAZOLE 200MG/100ML 100 ML IV SCH ×2 (10:38→11:53)
[2020-04-16] MEDS: PANTOPRAZOLE 40 MG/10 ML VIAL INJ IV SCH (10:38)
[2020-04-16] MEDS: POTASSIUM EFFERVESENT TAB 25 MEQ GT SCH (10:39)
[2020-04-16] MEDS: SODIUM CHLOR 0.9% PF (SALINE LOCK) 10ML VIAL/SYR IV SCH ×2 (10:39→22:00)
--- NOTE | 2020-04-16 12:00 | NUR ---
HELD REPOSITIONING PATIENT NODDED HER HEAD TO FEELING COMFORTABLE IN HER CURRENT POSITION. I ASKED HER IF SHE WANTED TO BE REPOSITIONED. SHE SAID NO. REPOSITIONING HELD. WILL ASK HER IF SHE WANTS TO BE REPOSITIONED AGAIN IN HALF AN HOUR. Addendum: 04/16/20 at 1941 by Gabrielle Fagan RN MADE AWARE OF POSSIBLE WORSENING OF HER SKIN CONDITION TO HER SACRUM
--- NOTE | 2020-04-16 12:20 | NUR ---
PHONE/MD RECEIVED A PHONE CALL FROM DR JOHNSON. UPDATED HIM ON THE PT'S CURRENT CONDITION AND THAT NO ABG WAS ORDERED THIS AM. HE WOULD LIKE AN ABG TO BE DONE. ORDER PLACED. NOTIFYING RT YAZMIN.
--- NOTE | 2020-04-16 13:00 | NUR ---
Received a call from Wilda GATICA at [facility] and stated she received authorization from [facility] for the patient to go to an LTAC an she is requesting a ICU bed.
--- NOTE | 2020-04-16 15:19 | NUR ---
Received a call from Elda COOPER at [facility] and gave Authorization for [facility] #[id number], stated will callum back with the transport authorization.
--- NOTE | 2020-04-16 15:35 | NUR ---
SKIN TEAR/ SPECIALTY BED SKIN TEAR NOTED TO THE PATIENTS SACRUM .PATIENT IS ON SPECIALTY BED
--- NOTE | 2020-04-16 15:45 | NUR ---
Received a call from Elda COOPER at [facility] and gave Authorization for authorization for transport for the patient #[id number].
--- NOTE | 2020-04-16 15:59 | NUR ---
SPOKE TO PATIENTS SISTER OVER THE PHONE. UPDATED HER ON PATIENT STATUS AND PLAN OF CARE.
[2020-04-16] MEDS: fentaNYL Drip 2500mCg/250mlNS 250 ML IV SCH (16:20)
[2020-04-16] MEDS: MIDAZOLAM DRIP 50 mg/50mL 50 ML IV SCH (16:27)
[2020-04-16] MEDS: VANCOMYCIN 1GM/250ML 250 ML IV SCH (16:33)
[2020-04-16] MEDS: NOREPINEPHRINE 8 MG/250ML KIT 250 ML IV SCH (16:50)
--- NOTE | 2020-04-16 19:15 | NUR ---
REPORT REPORT GIVEN TI AMARILIS HOUSTON RN.
[2020-04-16] MEDS: ACETAMINOPHEN 650 mg PER 20 mL UD GT PRN (22:33)
[2020-04-17] VITALS (92 sets, daily range): BP systolic 82–126; BP diastolic 33–73
[2020-04-17] MEDS: ACCU-CHEK COMFORT CURVE STRIP VI SCH ×4 (00:15→18:14)
[2020-04-17] MEDS: MORPHINE SULF INJ 2 MG/ML SYRINGE 1ML IV PRN ×3 (03:49→18:47)
[2020-04-17 04:45] LABS: Basophils # (auto) 0.1 10 ^3/uL (0-0.2); Basophils % (auto) 0.3 % (0.0-2.0); Eosinophils # (auto) 0.2 10 ^3/uL (0-0.8); Eosinophils % (auto) 1.2 % (0.0-7.0); Hematocrit 25.2 % (36.0-46.0); Hemoglobin 8.5 g/dL (12.2-16.2); Lymphocytes # (auto) 1.1 10 ^3/uL (0.4-5.4); Lymphocytes % (auto) 5.5 % (10.0-50.0); Mean Corpuscular Hemoglobin 30.6 pg (28.0-32.0); Mean Corpuscular Hgb Conc. 33.6 g/dL (32.0-36.0); Mean Corpuscular Volume 90.9 fL (80.0-100.0); Monocytes # (auto) 1.2 10 ^3/uL (0-1.3); Monocytes % (auto) 6.2 % (0.0-12.0); Neutrophils # (auto) 17.3 10 ^3/uL (1.6-8.6); Neutrophils % (auto) 86.8 % (37.0-80.0); Nucleated Red Blood Cells % 0.1 %; Platelet Count (auto) 168 10^3/uL (140-450); Red Blood Cells 2.77 10^6/uL (4.0-5.20); Red Cell Distribution Width 14.5 % (11.8-14.3)
[2020-04-17 05:03] LABS: Calcium 7.3 mg/dL (8.5-10.1); Potassium 3.8 mmol/L (3.5-5.1)
[2020-04-17 05:06] LABS: BUN/Creatinine Ratio 42.9
[2020-04-17] MEDS: MEROPENEM 1GM IVPB 100 ML IV SCH ×3 (05:27→22:00)
[2020-04-17] MEDS: BACLOFEN 10 MG TAB PO SCH ×3 (05:28→22:00)
[2020-04-17] MEDS: InsuLIN REG 1unit/0.01ml Soln (100units/ml) SC SCH ×4 (05:35→18:00)
--- NOTE | 2020-04-17 06:45 | NUR ---
NO CHANGE IN PATIENT'S CONDITION DURING THE NIGHT, VS STABLE, NO MORE DESATURATING, VENT SETTINGS UNCHANGED. STILL WAITING FOR BED TO BECOME AVAILABLE AT [facility].
--- NOTE | 2020-04-17 07:10 | NUR ---
REPORT REPORT RECEIVED FROM CELSO RNAMARILIS. PT RESTING IN BED WITH NO DISTRESS NOTED. CONTINUE TO MONITOR.
[2020-04-17] MEDS: IPRATROPIUM BROM 0.5 MG/2.5ML INH SOL NEB SCH ×5 (08:04→22:00)
[2020-04-17] MEDS: ALBUTEROL SULF 2.5 MG/0.5ML(0.5%) NEB SOLN NEB SCH ×5 (08:04→22:00)
--- NOTE | 2020-04-17 08:30 | NUR ---
ASSESSMENT PT AWAKE AND A/O X4. NON VERBAL SHE IS TRACHED AND ON THE VENTILATOR. PT UNABLE TO MOVE ANY EXTREMITIES DUE TO ALS,. PT WITH BIOVANA TRACH, SIZE 7.5, WITH SITE CLEAR. VENTILATOR SETTINGS OF : APC WITH RATE OF 14, PRESSURE OF 30, 55% FIO2, PEEP OF 8 AND I TIME OF 1.1 . LUNGS WITH EXPIRATORY WHEEZES NOTED AND ALSO COARSE. TELE ST 105. PALPABLE PULSES TO ALL EXTREMITIES WITH NO EDEMA NOTED. PT WITH SCDS AND HEEL PROTECTORS IN PLACE TO BLE. ABD SOFT WITH BOWEL SOUNDS NOTED. PEG TUBE WITH WITH SITE CLEAR. NO RESIDUAL NOTED AND OSMOLITE 1.2 FEEDING INFUSING AT 50 ML/HR, GOAL RATE AND TOLERATING WELL. PT TURNED FOR COMFORT. PT WITH SACRAL OPTIFOAM AND UNDER ON THE SACRUM IS A SKIN TEAR WITH OPEN BLISTERS. PT TURNED TO HER LEFT SIDE. RAILS UP X4 AND BED IN LOW POSITION. CONTINUE TO MONITOR.
[2020-04-17] MEDS: FUROSEMIDE 20 MG/2 ML VIAL IV SCH (09:38)
[2020-04-17] MEDS: PANTOPRAZOLE 40 MG/10 ML VIAL INJ IV SCH (09:38)
[2020-04-17] MEDS: MEMANTINE HCL 5 MG TAB PO SCH ×2 (09:38→22:00)
[2020-04-17] MEDS: POTASSIUM EFFERVESENT TAB 25 MEQ GT SCH (09:39)
[2020-04-17] MEDS: SODIUM CHLOR 0.9% PF (SALINE LOCK) 10ML VIAL/SYR IV SCH ×2 (09:39→22:00)
[2020-04-17] MEDS: ENOXAPARIN SOD 40 MG/0.4 ML SYRINGE SC SCH (09:39)
[2020-04-17] MEDS: FLUCONAZOLE 200MG/100ML 100 ML IV SCH ×2 (09:40→11:22)
--- NOTE | 2020-04-17 09:52 | NUR ---
FAMILY RECEIVED A PHONE CALL FROM PT'S SISTER, YI. AFTER VERIFYING THE PASSWORD, I UPDATED HER ON THE PT'S CURRENT CONDITION AND POC. SHE ALSO SPOKE TO THE PT.
--- NOTE | 2020-04-17 11:05 | NUR ---
PATIENTS WAS GRIMACING IN DISCOMFORT .SHE POINTED AT THE FEEDING PUMP AND COMPLAINED OF FEELING A SENSATION OF BEING FULL. PAUSED FEEDING PUMP AT THIS TIME.
[2020-04-17] MEDS: VANCOMYCIN 1GM/250ML 250 ML IV SCH (13:43)
--- NOTE | 2020-04-17 14:35 | NUR ---
Nutrition Followup Note Wt: 82.7 kg Pt`s, sleeping when rounded this am. Pt is awaiting transfer to a long-term acute care facility. Pt is currently NPO on EN support with Osmolite 1.2 @ 50 ml/hr per RN note. Pt with adequate EN support. Per RN pt received a PEG tube on 04/04, most likely d/t pt is with ALS. Est Energy needs BW 49 [id number] kcals (25-30 kcal/kgBW), Est Protein needs: 49-59 gms/day (1.0-1.2 gm/kgBW). Will continue to monitor and reassess prn Labs: GLU 114 H CA 7.3 L BM: Pt with 500 ml BM recorded today per RN note Skin: BS 13 mod risk, full details in assisted living care manager note PES: Altered nutrition related lab values r.t current chronic medical condition aeb elev BUN Inadequate PO intake r.t current chronic medical condition aeb pt`s with dysphagia Comments: Will continue to monitor NPO status, EN tolerance, skin status, pertinent labs and weight trends. Will f/u in 2-3 days. 1) Advance diet as medically feasible. 2) continue current plan of care
--- NOTE | 2020-04-17 15:04 | NUR ---
D/C Planning Placed follow up called to [facility] with [place]. Per [facility] bed is pending. [facility] is ON WILL CALL, a nurse will be on transportation when transporting patient to [place].
[2020-04-17] MEDS: fentaNYL Drip 2500mCg/250mlNS 250 ML IV SCH (16:20)
[2020-04-17] MEDS: MIDAZOLAM DRIP 50 mg/50mL 50 ML IV SCH (16:30)
[2020-04-17] MEDS: NOREPINEPHRINE 8 MG/250ML KIT 250 ML IV SCH (16:30)
--- NOTE | 2020-04-17 16:30 | NUR ---
ORAL TEMP OF 100.5 AND ICE PACKS APPLIED AND LIQUID TYLENOL GIVEN PER MD ORDER.
[2020-04-17] MEDS: ACETAMINOPHEN 650 mg PER 20 mL UD GT PRN (16:33)
--- NOTE | 2020-04-17 16:51 | NUR ---
FEEDING PUMP RESTARTED FEEDING PUMP AT THIS TIME AT 25MLS/HR
--- NOTE | 2020-04-17 18:00 | NUR ---
ORAL TEMP DOWN TO 99.5 . ICE PACKS STILL IN PLACE. CONTINUE TO MONITOR.
--- NOTE | 2020-04-17 19:15 | NUR ---
REPORT REPORT GIVEN TO IKER HOUSTON RN.
--- NOTE | 2020-04-17 19:50 | NUR ---
OPEN ASSUMED CARE OF FEMALE PT WITH HX OF ALS. PT WITH TRACH CONNECTED TO VENTILATOR. PT AWAKE AND ALERT. ABLE TO FOLLOW COMMANDS. ABLE TO COMMUNICATE MOUTHING WORDS. PT WITH RIGID CONTRACTED UPPER EXTREMITIES. LOWER EXTREMITIES FLACCID. SINUS TACH ON MANAGER CT. L. UPPER QUADRANT PEG TUBE IN PLACE WITH OSMOLITE FEEDING INFUSING AT 25 ML/HR. DRESSING CDI. SITE BENIGN. LIZ PICC LINE IN PLACE. DRESSING CDI ALL PORTS PATENT. CHEN TO GRAVITY DRAINING CLEAR YELLOW URINE WITH SOME SEDIMENT. PT WITH NON INTACT SKIN TO COCCYX AREA WITH OPTIFOAM GENTLE SACRAL DRESSING OVER Z GAURD BARRIER OINTMENT. PT ON SPECIALTY AIR MATTRESS. PILLOWS USED TO OFFLOAD BONY PROMINENCES AND ZACARIAS HEELS. ZACARIAS SCD'S IN PLACE. PT WITH ANTIONE BOOTS BUT REFUSING TO WEAR. PT DENIES PAIN. BED IN LOWEST LOCKED POSITION. HOB ELEVATED 40 DEGREES. SIDE RAILS UP X 2. PT IN FULL VIEW OF RN STATION. WILL CONTINUE TO MONITOR.
--- NOTE | 2020-04-17 20:00 | NUR ---
GI/FLEXI SEAL UPON TURNING PT FLEXI SEAL OBSERVED LAYING ON ABSORBANT PAD. LOOSE BROWN STOOL OBSERVED. PT CLEANSED. FLEXI SEAL RE INSERTED. SML PRESSURE ULCER TO COCCYX CLEANSED WITH WARM SOAPY WATER. PAT DRY. NEW Z-GAURD BARRIER OINTMENT PLACED. OPTIFOAM GENTLE SACRAL DRESSING APPLIED. PT TOLERATED WELL.
[2020-04-17] MEDS: ONDANSETRON HCL 4 MG/2 ML VIAL IV PRN (20:20)
--- NOTE | 2020-04-17 20:20 | NUR ---
NAUSEA PT EXPERIENCING NAUSEA. GAGGING. MEDICATED WITH ZOFRAN SIVP PER ORDER. PT FEEDING TURNED OFF DURING TURNING AND CLEANSING. WILL KEEP FEEDING OFF UNTIL NAUSEA RESOLVED.
[2020-04-18] VITALS (57 sets, daily range): BP systolic 10–121; BP diastolic 42–77
[2020-04-18] MEDS: ACCU-CHEK COMFORT CURVE STRIP VI SCH ×5 (00:12→23:51)
[2020-04-18] MEDS: InsuLIN REG 1unit/0.01ml Soln (100units/ml) SC SCH ×5 (00:20→23:51)
[2020-04-18] MEDS: MORPHINE SULF INJ 2 MG/ML SYRINGE 1ML IV PRN (00:25)
--- NOTE | 2020-04-18 00:25 | NUR ---
PAIN PT C/O PAIN TO ZACARIAS LOWER EXTREMITIES. MOUTHS MY LEGS ACHE. REPOSITIONING OF LEGS PROVIDED. MEDICATED WITH MORPHING SIVP PER ORDER. SEE EMAR.
--- NOTE | 2020-04-18 01:30 | NUR ---
ROUND PT SLEEPING. RESPIRATIONS EVEN UNLABORED ON VENTILATOR. WILL CONTINUE TO MONITOR.
--- NOTE | 2020-04-18 05:00 | NUR ---
BED BATH LINEN CHANGE PROVIDED FULL BED BATH AND LINEN CHANGE PROVIDED.
[2020-04-18] MEDS: MEROPENEM 1GM IVPB 100 ML IV SCH ×3 (06:23→21:55)
[2020-04-18] MEDS: BACLOFEN 10 MG TAB PO SCH ×3 (06:23→21:55)
[2020-04-18] MEDS: ALBUTEROL SULF 2.5 MG/0.5ML(0.5%) NEB SOLN NEB SCH ×5 (06:24→22:04)
[2020-04-18] MEDS: IPRATROPIUM BROM 0.5 MG/2.5ML INH SOL NEB SCH ×5 (06:24→22:04)
[2020-04-18] MEDS: ONDANSETRON HCL 4 MG/2 ML VIAL IV PRN (07:50)
--- NOTE | 2020-04-18 07:51 | NUR ---
NAUSEA PT COMPLAINING OF NAUSEA. FEEDING STOPPED FOR NOW. MEDICATED WITH ZOFRAN SIVP PER ORDER. SEE EMAR.
--- NOTE | 2020-04-18 07:53 | NUR ---
Respiratory note: Called and reported critical values from AM ABG to Dr. Santos, per continue with current vent settings. Will cont to monitor.
--- NOTE | 2020-04-18 08:00 | NUR ---
Opening Shift Note Assumed care of patient, tracheostomy to [facility] vent, awake and alert. No S/S of distress/SOB or pain. Patient complaining of nausea, tube feeding turned off, Zofran IV PRN given by Sarah MCCLELLAND. See interventions for complete assessment. Bed locked on low position, side rails up x2, bed alarms on at all times, call damian within reach, instructed on POC and to call for assist PRN, will continue to monitor for changes Q1hr and PRN.
[2020-04-18] MEDS: VANCOMYCIN 1GM/250ML 250 ML IV SCH (10:19)
[2020-04-18] MEDS: FUROSEMIDE 20 MG/2 ML VIAL IV SCH (10:20)
[2020-04-18] MEDS: POTASSIUM EFFERVESENT TAB 25 MEQ GT SCH (10:20)
[2020-04-18] MEDS: FLUCONAZOLE 200MG/100ML 100 ML IV SCH ×2 (10:20→12:28)
[2020-04-18] MEDS: PANTOPRAZOLE 40 MG/10 ML VIAL INJ IV SCH (10:20)
[2020-04-18] MEDS: MEMANTINE HCL 5 MG TAB PO SCH ×2 (10:20→21:54)
[2020-04-18] MEDS: SODIUM CHLOR 0.9% PF (SALINE LOCK) 10ML VIAL/SYR IV SCH ×2 (10:20→21:55)
--- NOTE | 2020-04-18 10:20 | NUR ---
Re-started Osmolite at 20 ml/hr, will continue to monitor.
[2020-04-18] MEDS: ENOXAPARIN SOD 40 MG/0.4 ML SYRINGE SC SCH (10:21)
--- NOTE | 2020-04-18 10:52 | NUR ---
Received call from patient's sister Sue who's able to provide password. Updated on patient's status and POC, verbalized understanding. All questions and concerns addressed.
--- NOTE | 2020-04-18 12:08 | NUR ---
Received call from Compliance Examiner Trish stating patient is going to [facility], Bed 504, under Dr Alejandre, pick - up time 9PM, number to call report [phone]. Read back and verified.
--- NOTE | 2020-04-18 12:11 | NUR ---
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 Informed nurse Connie of information above.
--- NOTE | 2020-04-18 14:40 | NUR ---
Informed patient regarding transfer to [facility], expressed understanding and mothed "Please call my sister." Spoke to patient's sister Krissy over the phone regarding transfer to [facility], sister gave acknowledgement Addendum: 04/18/20 at 1612 by Claribel Campuzano RN mouthed instead of mothed
--- NOTE | 2020-04-18 16:12 | NUR ---
Dr Patel at bedside, updated on patient's status. Patient seen and examined. Will carry out new orders.
[2020-04-18] MEDS: fentaNYL Drip 2500mCg/250mlNS 250 ML IV SCH (16:20)
--- NOTE | 2020-04-18 16:22 | NUR ---
Discharge MRSA sent to lab
[2020-04-18] MEDS: MIDAZOLAM DRIP 50 mg/50mL 50 ML IV SCH (16:40)
[2020-04-18] MEDS: NOREPINEPHRINE 8 MG/250ML KIT 250 ML IV SCH (16:50)
--- NOTE | 2020-04-18 17:21 | NUR ---
Sacral wound photograph taken.
--- NOTE | 2020-04-18 17:35 | NUR ---
Paged Dr Sena regarding patient's transfer to [facility] at 2100 tonight and the need for updated transfer papers. Awaiting call back.
--- NOTE | 2020-04-18 21:15 | NUR ---
Report called to Nurse Mahan at [phone] at [facility]. Pt going to Bed [address]. Accepting Dr. Alejandre.
--- NOTE | 2020-04-18 22:33 | NUR ---
Received word that new sweet pickled fruit maker time will be 04/19/20 1786. Pt made aware. Will continue to monitor.
--- NOTE | 2020-04-18 22:49 | NUR ---
Pt's sister Krissy called and was updated that pt will not be transported until @0630 in the morning. Pt was informed that sister called.
[2020-04-19] VITALS (9 sets, daily range): BP systolic 96–128; BP diastolic 43–63
[2020-04-19] MEDS: ONDANSETRON HCL 4 MG/2 ML VIAL IV PRN (02:55)
--- NOTE | 2020-04-19 03:04 | NUR ---
CHG bath completed.
[2020-04-19] MEDS: VANCOMYCIN 1GM/250ML 250 ML IV SCH (04:31)
[2020-04-19] MEDS: InsuLIN REG 1unit/0.01ml Soln (100units/ml) SC SCH (05:23)
[2020-04-19] MEDS: ACCU-CHEK COMFORT CURVE STRIP VI SCH (05:23)
[2020-04-19] MEDS: BACLOFEN 10 MG TAB PO SCH (05:35)
[2020-04-19] MEDS: IPRATROPIUM BROM 0.5 MG/2.5ML INH SOL NEB SCH (06:12)
[2020-04-19] MEDS: ALBUTEROL SULF 2.5 MG/0.5ML(0.5%) NEB SOLN NEB SCH (06:12)
[2020-04-19] MEDS: MEROPENEM 1GM IVPB 100 ML IV SCH (06:23)
--- NOTE | 2020-04-19 06:57 | NUR ---
[facility] TRANSPORT TEAM AT BEDSIDE TO CLIENT RELATIONSHIP MANAGER PATIENT. REPORT GIVEN TO TRANSPORT TEAM. RN AT BEDSIDE.
--- NOTE | 2020-04-19 07:08 | NUR ---
PT PLACED ON TRANSPORT VENT WITHOUT INCIDENT. TRANSPORTED OUT OF UNIT BY [facility] TEAM, NO S/S OF DISTRESS UPON DEPARTURE.
--- NOTE | 2020-04-19 07:12 | NUR ---
Pt picked up [facility] for transport to [facility]. Pt alert and oriented. Vital signs stable. Personal wheelchair sent w/pt. Pt stable for transport.
== END 2020-04-19 07:10 | disposition short-term general hospital (02) | DRG 4 ==
LOC: ER 14:20 → TELE 14:21 → TELE-WESTW 22:50 → ICU WEST 04-04 17:35
PROVIDERS: ADMIT Hospitalist; ATTEND Hospitalist
PROC: 5A1955Z Respiratory Ventilation, Greater than 96 Consecutive Hours (ICD-10-PCS; 2020-04-04)
PROC: 0BH17EZ Insertion of Endotracheal Airway into Trachea, Via Natural or Artificial Opening (ICD-10-PCS; 2020-04-04)
PROC: 3E0G76Z Introduction of Nutritional Substance into Upper GI, Via Natural or Artificial Opening (ICD-10-PCS; 2020-04-04)
PROC: 0DH63UZ Insertion of Feeding Device into Stomach, Percutaneous Approach (ICD-10-PCS; principal; 2020-04-04 14:32)
PROC: 0B110F4 Bypass Trachea to Cutaneous with Tracheostomy Device, Open Approach (ICD-10-PCS; 2020-04-04 14:32)
PROC: 02HV33Z Insertion of Infusion Device into Superior Vena Cava, Percutaneous Approach (ICD-10-PCS; 2020-04-07)
DX: A41.89 Other specified sepsis (principal); J96.22 Acute and chronic respiratory failure with hypercapnia; G93.41 Metabolic encephalopathy; G82.50 Quadriplegia, unspecified; E41 Nutritional marasmus; J96.21 Acute and chronic respiratory failure with hypoxia; G12.21 Amyotrophic lateral sclerosis; J98.11 Atelectasis; E46 Unspecified protein-calorie malnutrition; R47.01 Aphasia; Z99.11 Dependence on respirator [ventilator] status; E87.4 Mixed disorder of acid-base balance; J91.8 Pleural effusion in other conditions classified elsewhere; T79.7XXA Traumatic subcutaneous emphysema, initial encounter; Z99.3 Dependence on wheelchair; R62.7 Adult failure to thrive; E87.6 Hypokalemia; M41.9 Scoliosis, unspecified; M62.81 Muscle weakness (generalized); E86.0 Dehydration; D69.6 Thrombocytopenia, unspecified; E11.9 Type 2 diabetes mellitus without complications; F17.200 Nicotine dependence, unspecified, uncomplicated; Z79.899 Other long term (current) drug therapy; Z82.49 Family history of ischemic heart disease and other diseases of the circulatory system; Z83.3 Family history of diabetes mellitus; Z90.49 Acquired absence of other specified parts of digestive tract; Z20.828 Contact with and (suspected) exposure to other viral communicable diseases
CPT/HCPCS: 36415; 36569; 36600; 43246; 71045; 80048; 80053; 80061; 80202; 82550; 82565; 82805; 82962; 83036; 83735; 83880; 84484; 85025; 85610; 85730; 86850; 86900; 86901; 87040; 87070; 87077; 87081; 87086; 87186; 87205; 87426; 87493; 92610; 93005; 93971; 94002; 94003; 94640; 94660; 94667; A4605; A4618; C9113; G0378; J0330; J0690; J0696; J1450; J1815; J2185; J2250; J2405; J2704; J3480; J3490